=== PATIENT | female | born 1945 | race Caucasian/White ===

== ENCOUNTER 2018-10-08 13:10 | Emergency (ER) | payer MEDICARE, OTHER, SELFPAY ==
[2018-10-08 13:15] VITALS: BP 149/92; PULSE 68; RESP 15; TEMP 36.4; O2SAT 98; BMI 23.1
--- NOTE | 2018-10-08 13:17 | DI.RAD.S_ITS ---
PROCEDURE: XR CHEST 2V INDICATIONS: cough and green sputum 1 week TECHNIQUE: 2 views of the chest were acquired. COMPARISON: None. FINDINGS: Surgical changes and devices: Bilateral breast implants. Lungs and pleura: Lungs are clear. No pleural effusions or pneumothorax. Mediastinum: Mediastinal contours are normal. Heart size is normal. Bones and chest wall: No suspicious bony abnormalities. Soft tissues appear unremarkable. IMPRESSION: No acute process. Dictated by: Jamar Watt M.D. on 10/08/2018 at 13:32 Approved by: Jamar Watt M.D. on 10/08/2018 at 13:33
--- NOTE | 2018-10-08 14:51 | ED.URI ---
HPI - URI/Sore Throat <DAFNE MarianoBC - Last Filed: 10/08/18 17:20> General Chief Complaint: Upper Respiratory Symptoms Stated Complaint: cough x7 days Time Seen by Provider: 10/08/18 14:24 Source: patient Mode of arrival: ambulatory Limitations: no limitations History of Present Illness HPI Narrative: The patient is a 73-year-old never smoker female who states she has a history of bronchitis who presents with a chief complaint of a cough. Cough has been going on since Thursday 10/05. She states she also has a sore throat. She complains of feeling warm, but has not checked her temperature. She denies any vomiting. She complains of slight nausea. She says she has had some loose stools ?but not that bad.She states she recently became coughing up green stuff. She denies any chest pain or shortness of breath. She states she is taking Nasonex. She has tried ubif-akv-jrvqdla cough medication but nothing else to feel better. She present this requesting a Z-Colin for bronchitis. Related Data Home Medications Medication Instructions Recorded Confirmed MULTIVITAMIN (Multivitamin 1 cap PO EVERY DAY #0 02/22/07 -) CA PANTOTHENATE/FOLIC ACID/VIT #0 05/22/12 (MULTIVITAMIN) Dehydroepiandrosterone, Micr #0 05/22/12 (#DHEA) Fish Oil (#OMEGA 3) #0 05/22/12 Previous Rx's Medication Instructions Recorded benzonatate [Tessalon Perles] 100 mg PO BID PRN #20 cap 10/08/18 Allergies Allergy/AdvReac Type Severity Reaction Status Date / Time Penicillins Allergy Verified 10/08/18 13:15 Review of Systems <MOISES Mariano - Last Filed: 10/08/18 17:20> Review of Systems GENERAL: See HPI HEENT: See HPI RESPIRATORY: See HPI CARDIOVASCULAR: Denies chest pain, palpitations, orthopnea, edema, GASTROINTESTINAL: Denies nausea, vomiting, abdominal pain, diarrhea, constipation, melena. : Denies dysuria, frequency, incontinence, hematuria, urinary retention. MUSCULOSKELETAL: denies weakness, joint pain, or bony pain SKIN: Denies rash, skin lesions, or other NEUROLOGIC: Denies weakness, headache, numbness, change in speech, confusion, seizures, incoordination. PSYCHIATRIC: No concerning psychosocial issues. 12 point review of systems is negative except for those stated above PFSH <MOISES Mariano - Last Filed: 10/08/18 17:20> Medical History (Updated 10/08/18 @ 17:17 by MOISES Mariano) History of bronchitis (Acute) Social History (Updated 10/08/18 @ 17:16 by MOISES Mariano) Smoking Status: Never smoker Social History (Updated 10/08/18 @ 17:16 by MOISES Mariano) Smoking Status: Never smoker Exam <MOISES Mariano - Last Filed: 10/08/18 17:20> Narrative Exam Narrative: GENERAL: This is a well-nourished, well-developed patient, no acute distress HEAD: Atraumatic. Normocephalic. No temporal or scalp tenderness. EYES: Pupils equal round and reactive. Extraocular motions intact. No scleral icterus. No injection or drainage. ENT: Nose without bleeding, purulent drainage or septal hematoma. Throat without erythema, tonsillar hypertrophy or exudate. Uvula midline. Airway patent. Bilateral TMs pearly lema. NECK: Trachea midline. No JVD or lymphadenopathy. Supple, nontender, no meningeal signs. CARDIOVASCULAR: Regular rate and rhythm without murmurs, gallops, or rubs. RESPIRATORY: Clear to auscultation. Breath sounds equal bilaterally. No wheezes, rales, or rhonchi. No accessory muscle use. No stridor. No retractions. Dry cough x1 during exam GASTROINTESTINAL: Abdomen soft, non-tender, nondistended. No hepato-splenomegaly, or palpable masses. No guarding. Active bowel sounds. EXTREMITIES: No clubbing, cyanosis, or edema. No joint tenderness, effusion, or edema noted. BACK: Nontender without deformity or crepitance. No flank tenderness. NEURO: AOx3. SKIN: No rash or erythema. Initial Vital Signs Initial Vital Signs: Vital Signs Temperature 97.6 F 10/08/18 13:15 Pulse Rate 68 10/08/18 13:15 Respiratory Rate 15 10/08/18 13:15 Blood Pressure 149/92 H 10/08/18 13:15 Pulse Oximetry 98 10/08/18 13:15 <Yaneli Melton DO - Last Filed: 10/10/18 07:30> Initial Vital Signs Initial Vital Signs: Vital Signs Temperature 97.6 F 10/08/18 13:15 Pulse Rate 68 10/08/18 13:15 Respiratory Rate 15 10/08/18 13:15 Blood Pressure 149/92 H 10/08/18 13:15 Pulse Oximetry 98 10/08/18 13:15 Course <MOISES Mariano - Last Filed: 10/08/18 17:20> Orders Ordered: ED Orders 10/08/18 13:17 Chest [XR chest 2V] Stat Vital Signs - 8 hr 10/08/18 13:15 10/08/18 15:12 Temperature 97.6 F 98.3 F Pulse Rate 68 67 Respiratory Rate 15 16 Blood Pressure 149/92 H Blood Pressure [Left Arm] 134/89 Pulse Oximetry 98 99 <Yaneli Melton DO - Last Filed: 10/10/18 07:30> Orders Ordered: ED Orders 10/08/18 13:17 Chest [XR chest 2V] Stat Vital Signs - 8 hr 10/08/18 13:15 10/08/18 15:12 Temperature 97.6 F 98.3 F Pulse Rate 68 67 Respiratory Rate 15 16 Blood Pressure 149/92 H Blood Pressure [Left Arm] 134/89 Pulse Oximetry 98 99 MDM - URI/Sore Throat <MOISES Mariano - Last Filed: 10/08/18 17:20> Imaging Data Chest x-ray: Radiologist's impression: Radha Duke 73 F 1945 [place] [address] XRay Report Signed Patient: Radha Duke [facility]#: [id number] : 7Acct:[id number] Age/Sex: 73 / FDate of Service: 10/08/18 Loc: ED Accession Number: [id number] Procedure: XR chest 2V Ordering Provider: Yaneli Melton D.O. PROCEDURE: XR CHEST 2V INDICATIONS: cough and green sputum 1 week TECHNIQUE: 2 views of the chest were acquired. COMPARISON: None. FINDINGS: Surgical changes and devices: Bilateral breast implants. Lungs and pleura: Lungs are clear. No pleural effusions or pneumothorax. Mediastinum: Mediastinal contours are normal. Heart size is normal. Bones and chest wall: No suspicious bony abnormalities. Soft tissues appear unremarkable. IMPRESSION: No acute process. Dictated by: Jamar Watt M.D. on 10/08/2018 at 13:32 Approved by: Jamar Watt M.D. on 10/08/2018 at 13:33 [facility] Narrative Medical decision making narrative: The patient is a 73-year-old female who presents requesting antibiotics for her 4 day cough. She has no pneumonia acute etiology and chest x-ray. She is afebrile, oxygenating well, hemodynamically stable. I discussed at length that she has no indications of bacterial infection at this point time. Her exam is overall benign. She did have a dry cough x1 during exam and subsequent follow-up discussion. I did give her a prescription of Tessalon Perles in order to help improve her sleeping. I did encourage continued hwmr-kbq-dzzzudj medication use for comfort such as Castro med sinus rinse and honey/lemon. Discussed follow-up with her primary care provider for new or worsening symptoms. Discussed coming back to the emergency department for any acute concerns such as chest pain or shortness of breath. Of note the patient did express some concern regarding being treated by a nurse practitioner in the emergency department. I did not practitioners and physician orthodontist assistant's work in emergency department across the country, including this one. I did offer to see if the physician was available to evaluate the patient, but discussed that she was with higher acuity patients at this point time. The patient later stated that it was no longer necessary. Discharge Plan Departure Patient Disposition: Home Clinical Impression: Cough Upper respiratory infection Qualifiers: URI type: unspecified viral URI Qualified Code(s): J06.9 - Acute upper respiratory infection, unspecified Discharge Date/Time: 10/08/18 15:14 Interventions: ED Discharge Assessment Last Done: 10/08/18 15:13 Instructions: DI for Cough -- Adult, DI for Viral Upper Respiratory Infection -- Adult Activity Restrictions/Additional Instructions: Your chest x-ray shows no acute process. You have no evidence of pneumonia. You do not have a fever and are oxygenating well in the emergency department. I have given you a prescription help reduce your cough. Please combine this with zjwp-kyt-uawnwvx for measures such as honey and lemon, nute-hgx-wteizjq cold medications etc Please follow up with your primary care provider, especially if not improving or worsening. Come back to emergency department for any acute concerns such as chest pain, shortness of breath, concern of heart attack or stroke. Prescriptions: New benzonatate [Tessalon Perles] 100 mg capsule 100 mg PO BID PRN (Reason: cough) Qty: 20 RF: 0 No Action MULTIVITAMIN (Multivitamin -) 1 cap PO EVERY DAY Qty: 0 RF: 0 CA PANTOTHENATE/FOLIC ACID/VIT (MULTIVITAMIN) Qty: 0 RF: 0 Dehydroepiandrosterone, Micr (#DHEA) Qty: 0 RF: 0 Fish Oil (#OMEGA 3) Qty: 0 RF: 0 <Yaneli Melton DO - Last Filed: 10/10/18 07:30> Cosign ED Attending Cosignature Attestation: I was immediately available in the department for consultation. This documentation has been reviewed and I agree with assessment and plan. Supervised by Yaneli Melton DO
--- NOTE | 2018-10-08 14:55 | ED_ITS ---
HPI - URI/Sore Throat <DAFNE MarianoBC - Last Filed: 10/08/18 17:20> General Chief Complaint: Upper Respiratory Symptoms Stated Complaint: cough x7 days Time Seen by Provider: 10/08/18 14:24 Source: patient Mode of arrival: ambulatory Limitations: no limitations History of Present Illness HPI Narrative: The patient is a 73-year-old never smoker female who states she has a history of bronchitis who presents with a chief complaint of a cough. Cough has been going on since Thursday 10/05. She states she also has a sore throat. She complains of feeling warm, but has not checked her temperature. She denies any vomiting. She complains of slight nausea. She says she has had some loose stools ?but not that bad.She states she recently became coughing up green stuff. She denies any chest pain or shortness of breath. She states she is taking Nasonex. She has tried lles-gmi-nvlqdea cough medication but nothing else to feel better. She present this requesting a Z-Colin for bronchitis. Related Data Home Medications Medication Instructions Recorded Confirmed MULTIVITAMIN (Multivitamin 1 cap PO EVERY DAY #0 02/22/07 -) CA PANTOTHENATE/FOLIC ACID/VIT #0 05/22/12 (MULTIVITAMIN) Dehydroepiandrosterone, Micr #0 05/22/12 (#DHEA) Fish Oil (#OMEGA 3) #0 05/22/12 Previous Rx's Medication Instructions Recorded benzonatate [Tessalon Perles] 100 mg PO BID PRN #20 cap 10/08/18 Allergies Allergy/AdvReac Type Severity Reaction Status Date / Time Penicillins Allergy Verified 10/08/18 13:15 Review of Systems <MOISES Mariano - Last Filed: 10/08/18 17:20> Review of Systems GENERAL: See HPI HEENT: See HPI RESPIRATORY: See HPI CARDIOVASCULAR: Denies chest pain, palpitations, orthopnea, edema, GASTROINTESTINAL: Denies nausea, vomiting, abdominal pain, diarrhea, constipation, melena. : Denies dysuria, frequency, incontinence, hematuria, urinary retention. MUSCULOSKELETAL: denies weakness, joint pain, or bony pain SKIN: Denies rash, skin lesions, or other NEUROLOGIC: Denies weakness, headache, numbness, change in speech, confusion, seizures, incoordination. PSYCHIATRIC: No concerning psychosocial issues. 12 point review of systems is negative except for those stated above PFSH <MOISES Mariano - Last Filed: 10/08/18 17:20> Medical History (Updated 10/08/18 @ 17:17 by MOISES Mariano) History of bronchitis (Acute) Social History (Updated 10/08/18 @ 17:16 by MOISES Mariano) Smoking Status: Never smoker Social History (Updated 10/08/18 @ 17:16 by MOISES Mariano) Smoking Status: Never smoker Exam <MOISES Mariano - Last Filed: 10/08/18 17:20> Narrative Exam Narrative: GENERAL: This is a well-nourished, well-developed patient, no acute distress HEAD: Atraumatic. Normocephalic. No temporal or scalp tenderness. EYES: Pupils equal round and reactive. Extraocular motions intact. No scleral icterus. No injection or drainage. ENT: Nose without bleeding, purulent drainage or septal hematoma. Throat without erythema, tonsillar hypertrophy or exudate. Uvula midline. Airway patent. Bilateral TMs pearly lema. NECK: Trachea midline. No JVD or lymphadenopathy. Supple, nontender, no meningeal signs. CARDIOVASCULAR: Regular rate and rhythm without murmurs, gallops, or rubs. RESPIRATORY: Clear to auscultation. Breath sounds equal bilaterally. No wheezes, rales, or rhonchi. No accessory muscle use. No stridor. No retractions. Dry cough x1 during exam GASTROINTESTINAL: Abdomen soft, non-tender, nondistended. No hepato- splenomegaly, or palpable masses. No guarding. Active bowel sounds. EXTREMITIES: No clubbing, cyanosis, or edema. No joint tenderness, effusion, or edema noted. BACK: Nontender without deformity or crepitance. No flank tenderness. NEURO: AOx3. SKIN: No rash or erythema. Initial Vital Signs Initial Vital Signs: Vital Signs Temperature 97.6 F 10/08/18 13:15 Pulse Rate 68 10/08/18 13:15 Respiratory Rate 15 10/08/18 13:15 Blood Pressure 149/92 H 10/08/18 13:15 Pulse Oximetry 98 10/08/18 13:15 <Yaneli Melton DO - Last Filed: 10/10/18 07:30> Initial Vital Signs Initial Vital Signs: Vital Signs Temperature 97.6 F 10/08/18 13:15 Pulse Rate 68 10/08/18 13:15 Respiratory Rate 15 10/08/18 13:15 Blood Pressure 149/92 H 10/08/18 13:15 Pulse Oximetry 98 10/08/18 13:15 Course <MOISES Mariano - Last Filed: 10/08/18 17:20> Orders Ordered: ED Orders 10/08/18 13:17 Chest [XR chest 2V] Stat Vital Signs - 8 hr 10/08/18 13:15 10/08/18 15:12 Temperature 97.6 F 98.3 F Pulse Rate 68 67 Respiratory Rate 15 16 Blood Pressure 149/92 H Blood Pressure [Left Arm] 134/89 Pulse Oximetry 98 99 <Yaneli Melton DO - Last Filed: 10/10/18 07:30> Orders Ordered: ED Orders 10/08/18 13:17 Chest [XR chest 2V] Stat Vital Signs - 8 hr 10/08/18 13:15 10/08/18 15:12 Temperature 97.6 F 98.3 F Pulse Rate 68 67 Respiratory Rate 15 16 Blood Pressure 149/92 H Blood Pressure [Left Arm] 134/89 Pulse Oximetry 98 99 MDM - URI/Sore Throat <MOISES Mariano - Last Filed: 10/08/18 17:20> Imaging Data Chest x-ray: Radiologist's impression: Radha Duke 73 F 1945 [place] [address] XRay Report Signed Patient: Radha Duke [facility]#: [id number] : 7Acct:[id number] Age/Sex: 73 / FDate of Service: 10/08/18 Loc: ED Accession Number: [id number] Procedure: XR chest 2V Ordering Provider: Yaneli Melton D.O. PROCEDURE: XR CHEST 2V INDICATIONS: cough and green sputum 1 week TECHNIQUE: 2 views of the chest were acquired. COMPARISON: None. FINDINGS: Surgical changes and devices: Bilateral breast implants. Lungs and pleura: Lungs are clear. No pleural effusions or pneumothorax. Mediastinum: Mediastinal contours are normal. Heart size is normal. Bones and chest wall: No suspicious bony abnormalities. Soft tissues appear unremarkable. IMPRESSION: No acute process. Dictated by: Jamar Watt M.D. on 10/08/2018 at 13:32 Approved by: Jamar Watt M.D. on 10/08/2018 at 13:33 [facility] Narrative Medical decision making narrative: The patient is a 73-year-old female who presents requesting antibiotics for her 4 day cough. She has no pneumonia acute etiology and chest x-ray. She is afebrile, oxygenating well, hemodynamically stable. I discussed at length that she has no indications of bacterial infection at this point time. Her exam is overall benign. She did have a dry cough x1 during exam and subsequent follow-up discussion. I did give her a prescription of Tessalon Perles in order to help improve her sleeping. I did encourage continued pair-tfp-iilfhrn medication use for comfort such as Castro med sinus rinse and honey/lemon. Discussed follow-up with her primary care provider for new or worsening symptoms. Discussed coming back to the emergency department for any acute concerns such as chest pain or shortness of breath. Of note the patient did express some concern regarding being treated by a nurse practitioner in the emergency department. I did not practitioners and physician veterinary assistant's work in emergency department across the country, including this one. I did offer to see if the physician was available to evaluate the patient, but discussed that she was with higher acuity patients at this point time. The patient later stated that it was no longer necessary. Discharge Plan Departure Patient Disposition: Home Clinical Impression: Cough Upper respiratory infection Qualifiers: URI type: unspecified viral URI Qualified Code(s): J06.9 - Acute upper respiratory infection, unspecified Discharge Date/Time: 10/08/18 15:14 Interventions: ED Discharge Assessment Last Done: 10/08/18 15:13 Instructions: DI for Cough -- Adult, DI for Viral Upper Respiratory Infection -- Adult Activity Restrictions/Additional Instructions: Your chest x-ray shows no acute process. You have no evidence of pneumonia. You do not have a fever and are oxygenating well in the emergency department. I have given you a prescription help reduce your cough. Please combine this with euhk-jpi-euezpqa for measures such as honey and lemon, acpy-vtb-ajejxgl cold medications etc Please follow up with your primary care provider, especially if not improving or worsening. Come back to emergency department for any acute concerns such as chest pain, shortness of breath, concern of heart attack or stroke. Prescriptions: New benzonatate [Tessalon Perles] 100 mg capsule 100 mg PO BID PRN (Reason: cough) Qty: 20 RF: 0 No Action MULTIVITAMIN (Multivitamin -) 1 cap PO EVERY DAY Qty: 0 RF: 0 CA PANTOTHENATE/FOLIC ACID/VIT (MULTIVITAMIN) Qty: 0 RF: 0 Dehydroepiandrosterone, Micr (#DHEA) Qty: 0 RF: 0 Fish Oil (#OMEGA 3) Qty: 0 RF: 0 <Yaneli Melton DO - Last Filed: 10/10/18 07:30> Cosign ED Attending Cosignature Attestation: I was immediately available in the department for consultation. This documentation has been reviewed and I agree with assessment and plan. Supervised by Yaneli Melton DO
[2018-10-08 15:12] VITALS: BP 134/89; PULSE 67; RESP 16; TEMP 36.8; O2SAT 99
== END 2018-10-08 15:14 | disposition home or self-care (01) ==
PROVIDERS: Emergency Provider Nurse Practitioner Family
DX: J06.9 Acute upper respiratory infection, unspecified (principal)
CPT/HCPCS: 71046; 99282; 99283

== ENCOUNTER → 2018-10-28 09:08 | Outpatient (CLI) | payer MEDICARE, OTHER, SELFPAY ==
[2018-10-28 10:22] LABS: Alanine Aminotransferase 15 IU/L (9-52); Albumin Globulin Ratio 1.3 (1.0-2.8); Alkaline Phosphatase 79 U/L (38-126); Aspartate Aminotransferase 28 IU/L (14-36); Bilirubin Total 0.4 mg/dL (0.2-1.3); Blood Urea Nitrogen 16 mg/dL (7-17); Carbon Dioxide 30 mmol/L (22-32); Chloride 104 mmol/L (98-107); Estimated Glomerular Filt Rate > 60.0 mL/min (>60); Glucose 93 mg/dL (80-110); HEMOLYSIS < 15 (0-50); Potassium 4.2 mmol/L (3.4-5.1); Sodium 140 mmol/L (137-145)
[2018-10-28 10:37] LABS: Vitamin D 25 Hydroxy (D3) 48.4 ng/mL (30.0-100.0)
[2018-10-28 10:53] LABS: TSH w/ Reflex to FT4 2.21 uIU/mL (0.47-4.68)
[2018-10-30 14:59] LABS: Parathyroid Hormone Int 61 pg/mL (14-64)
== END ==
PROVIDERS: Visit Provider Internal Medicine Endocrinology, Diabetes & Metabolism
DX: E04.0 Nontoxic diffuse goiter (principal); M81.0 Age-related osteoporosis without current pathological fracture
CPT/HCPCS: 36415; 80053; 82306; 83970; 84443

== ENCOUNTER → 2019-01-05 14:57 | Outpatient (CLI) | payer MEDICARE, OTHER, SELFPAY ==
[2019-01-05 16:55] LABS: Progesterone, Total 1.38 ng/mL
== END ==
PROVIDERS: Physician Assistant; Visit Provider Nurse Practitioner Family
DX: N95.1 Menopausal and female climacteric states (principal); Z79.890 Hormone replacement therapy
CPT/HCPCS: 36415; 84144

== ENCOUNTER → 2019-09-30 09:18 | Outpatient (CLI) | payer MEDICARE, OTHER, SELFPAY ==
[2019-09-30 11:21] LABS: Estimated Glomerular Filt Rate > 60.0 mL/min (>60)
== END ==
DX: Z91.89 Other specified personal risk factors, not elsewhere classified (principal)
CPT/HCPCS: 36415; 82565

== ENCOUNTER → 2020-01-28 11:02 | Outpatient (CLI) | payer MEDICARE, OTHER, SELFPAY ==
[2020-01-29 18:00] LABS: COVID19 Sendout Not Detected (Not Detected)
== END ==
PROVIDERS: Visit Provider Physician Assistant
DX: R09.89 Other specified symptoms and signs involving the circulatory and respiratory systems (principal); R50.9 Fever, unspecified; R68.83 Chills (without fever)
CPT/HCPCS: 87635

== ENCOUNTER → 2020-02-02 10:36 | Outpatient (CLI) | payer MEDICARE, OTHER, SELFPAY ==
[2020-02-02 12:00] LABS: Alanine Aminotransferase 20 IU/L (<35); Albumin 3.7 g/dL (3.5-5.0); Albumin Globulin Ratio 1.4 (1.0-2.8); Alkaline Phosphatase 57 U/L (38-126); Aspartate Aminotransferase 27 IU/L (14-36); BUN Creatinine Ratio 18.1 (6-22); Bilirubin Total 0.5 mg/dL (0.2-1.3); Blood Urea Nitrogen 13 mg/dL (7-17); Calcium 9.2 mg/dL (8.4-10.2); Carbon Dioxide 33 mmol/L (22-32); Chloride 102 mmol/L (98-107); Estimated Glomerular Filt Rate > 60.0 mL/min (>60); Globulin 2.7 g/dL (1.7-4.1); Glucose 88 mg/dL (80-110); HEMOLYSIS < 15 (0-50); Potassium 4.3 mmol/L (3.4-5.1); Sodium 139 mmol/L (137-145); Total Protein 6.4 g/dL (6.3-8.2)
[2020-02-02 12:16] LABS: Vitamin D 25 Hydroxy (D3) 41.5 ng/mL (30.0-100.0)
[2020-02-02 12:28] LABS: Thyroid Stimulating Hormone 1.27 uIU/mL (0.47-4.68)
[2020-02-03 07:56] LABS: Parathyroid Hormone Int 27 pg/mL (15-65)
== END ==
PROVIDERS: PCP Internal Medicine; Referring Provider Nurse Practitioner Family; Visit Provider Internal Medicine Endocrinology, Diabetes & Metabolism
DX: M81.0 Age-related osteoporosis without current pathological fracture (principal); Z79.890 Hormone replacement therapy; N95.1 Menopausal and female climacteric states
CPT/HCPCS: 36415; 80053; 82306; 83970; 84144; 84443

== ENCOUNTER → 2021-02-09 11:11 | Outpatient (CLI) | payer MEDICARE, OTHER, SELFPAY ==
[2021-02-09 15:15] LABS: Progesterone, Total 1.25 ng/mL
== END ==
PROVIDERS: PCP Internal Medicine; Referring Provider Nurse Practitioner Family; Visit Provider Nurse Practitioner Family
DX: N95.1 Menopausal and female climacteric states (principal); Z79.899 Other long term (current) drug therapy
CPT/HCPCS: 36415; 84144

== ENCOUNTER 2021-04-28 13:28 | Emergency (ER) | payer MEDICARE, OTHER, SELFPAY ==
[2021-04-28 13:31] VITALS: BP 183/94; PULSE 60; RESP 14; TEMP 36.9; O2SAT 98; BMI 23.6
--- NOTE | 2021-04-28 13:41 | ED.ALLEREA ---
HPI - Allergic Reaction General Chief complaint: Allergic Reaction Stated complaint: allergic reaction Time Seen by Provider: 04/28/21 13:40 Source: patient Mode of arrival: Ambulatory History of Present Illness HPI narrative: The patient developed N/C rash about 45 minutes ago. She has rash on her chest, her upper extremities. She has no fever, no congestion URI symptoms. She has no cough. She denies airway tightness. She has no chest pain or dyspnea. She did have a blood draw from right antecubital earlier today. She has no discomfort at that site. She had almonds earlier today. She has not frequently, she has never had a drug or food allergy. She has no history of nut allergies. Related Data Home Medications Medication Instructions Recorded Confirmed MULTIVITAMIN (Multivitamin 1 cap PO EVERY DAY #0 02/22/07 -) CA PANTOTHENATE/FOLIC ACID/VIT #0 05/22/12 (MULTIVITAMIN) Dehydroepiandrosterone, Micr #0 05/22/12 (#DHEA) Fish Oil (#OMEGA 3) #0 05/22/12 Previous Rx's Medication Instructions Recorded benzonatate 100 mg capsule 100 mg PO BID PRN #20 cap 10/08/18 (Tessalon Perles) prednisone 20 mg tablet 40 mg PO DAILY 5 Days tab 04/28/21 Allergies Allergy/AdvReac Type Severity Reaction Status Date / Time Penicillins Allergy Verified 04/28/21 13:31 Review of Systems Constitutional Constitutional: Reports as per HPI, Denies body ache(s), Denies chills, Denies fever(s), Reports headache(s) and Reports other (Dizziness) Eyes Eyes: Denies blurry vision, Denies change in vision and Denies irritation ENT Ears, Nose, Mouth, and Throat: Denies vertigo, Reports dizziness, Reports headache(s), Denies lip swelling, Denies mouth pain, Denies nasal congestion and Denies neck pain Cardiovascular Cardiovascular: Denies chest pain, Denies diaphoresis, Denies syncope, Denies rapid heart rate and Denies dyspnea Respiratory Respiratory: Denies chest congestion, Denies cough and Denies dyspnea Gastrointestinal Gastrointestinal: Denies abdominal pain, Denies nausea and Denies vomiting Genitourinary Genitourinary: Denies dysuria Musculoskeletal Musculoskeletal: Denies arthralgias, Denies muscle weakness, Denies myalgias and Denies neck pain Integumentary/Breasts Comments: Rash was present on her upper extremities, chest and anterior neck Neurologic Neurologic: Denies vertigo, Reports dizziness, Denies syncope and Reports headache(s) Psychiatric Psychiatric: Denies anxiety Endocrine Endocrine: Reports system reviewed and no additional complaints, except as documented Hematologic/Lymphatic On Anticoagulants: No Allergic/Immunologic Allergic/Immunologic: Denies lip swelling Patient History Medical History History of bronchitis Social History Smoking Status: Never smoker Smoking Status: Never smoker alcohol intake frequency: holidays/special occasions only Substance Use Type: does not use Exam Initial Vital Signs Initial Vital Signs: Vital Signs Temperature 98.4 F 04/28/21 13:31 Pulse Rate 60 04/28/21 13:31 Respiratory Rate 14 04/28/21 13:31 Blood Pressure 183/94 H 04/28/21 13:31 Pulse Oximetry 98 04/28/21 13:31 Const General: cooperative and healthy appearing [facility] Head: normocephalic and atraumatic Face and sinus: normal facial exam Mouth: oral mucosae normal Throat: posterior oropharynx normal (No erythema or edema.) Eyes Conjunctivae: conjunctivae normal Sclera: sclerae normal Neck Neck: No lymphadenopathy and No JVD Resp Effort & Inspection: normal respiratory effort Auscultation: clear to auscultation bilaterally Cardio Rate: regular rate Rhythm: regular rhythm Heart Sounds: S1 normal, S2 normal and no murmurs Skin Other: Patchy erythematous rash to the anterior neck, chest, and proximal upper extremities. Neuro General: patient alert, patient oriented x3 and no focal motor deficits Course Course Course Narrative: Clinically she is much better after receiving Benadryl and prednisone. The rash is almost completely resolved. Lungs are clear prior to discharge. She is discharged on prednisone and Benadryl, I suggested follow-up with a PCM and seek allergy testing as this appears to be a nut allergy. 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 Prednisone 40 mg daily if symptoms returned. Avoid all nuts. There is a good chance that the almonds caused the allergic reaction. I would suggest you talk to your doctor about allergy testing. If symptoms return, you should return to the ER. Prescriptions: New prednisone 20 mg tablet 40 mg PO DAILY 5 Days 0RF No Action MULTIVITAMIN (Multivitamin -) 1 cap PO EVERY DAY Qty: 0 0RF CA PANTOTHENATE/FOLIC ACID/VIT (MULTIVITAMIN) Qty: 0 0RF Dehydroepiandrosterone, Micr (#DHEA) Qty: 0 0RF Fish Oil (#OMEGA 3) Qty: 0 0RF benzonatate [Tessalon Perles] 100 mg capsule 100 mg PO BID PRN (Reason: cough) Qty: 20 0RF Referrals: Yany Verduzco MD [Primary Care Provider] -
[2021-04-28] MEDS: diphenhydrAMINE 25 MG TABLET PO (13:44)
[2021-04-28] MEDS: predniSONE 20 MG TABLET 40 MG PO (13:44)
[2021-04-28 14:34] VITALS: BP 147/81; PULSE 62; RESP 18; O2SAT 98
== END 2021-04-28 15:10 | disposition home or self-care (01) ==
PROVIDERS: Emergency Provider Emergency Medicine; PCP Internal Medicine
DX: T78.1XXA Other adverse food reactions, not elsewhere classified, initial encounter (principal); R21 Rash and other nonspecific skin eruption; Z88.0 Allergy status to penicillin
CPT/HCPCS: 99283

== ENCOUNTER → 2021-07-17 14:36 | Outpatient (CLI) | payer MEDICARE, OTHER, SELFPAY ==
[2021-07-17 17:54] LABS: Alanine Aminotransferase 29 IU/L (<35); Albumin 3.9 g/dL (3.5-5.0); Albumin Globulin Ratio 1.3 (1.0-2.8); Alkaline Phosphatase 65 U/L (38-126); Aspartate Aminotransferase 39 IU/L (14-36); BUN Creatinine Ratio 19.7 (6-22); Bilirubin Total 0.3 mg/dL (0.2-1.3); Blood Urea Nitrogen 15 mg/dL (7-17); Carbon Dioxide 31 mmol/L (22-32); Chloride 107 mmol/L (98-107); Estimated Glomerular Filt Rate > 60.0 mL/min (>60); Globulin 2.9 g/dL (1.7-4.1); Glucose 91 mg/dL (80-110); HEMOLYSIS < 15 (0-50); Potassium 4.3 mmol/L (3.4-5.1); Sodium 139 mmol/L (137-145); Total Protein 6.8 g/dL (6.3-8.2)
[2021-07-17 18:01] LABS: Vitamin D 25 Hydroxy (D3) 49.4 ng/mL (30.0-100.0)
[2021-07-17 18:20] LABS: Thyroid Stimulating Hormone 1.76 uIU/mL (0.47-4.68)
[2021-07-18 07:13] LABS: Parathyroid Hormone Int 49 pg/mL (15-65)
== END ==
PROVIDERS: Family Provider Internal Medicine; PCP Internal Medicine; Referring Provider Internal Medicine Endocrinology, Diabetes & Metabolism; Visit Provider Internal Medicine Endocrinology, Diabetes & Metabolism
DX: E04.0 Nontoxic diffuse goiter (principal); M81.0 Age-related osteoporosis without current pathological fracture
CPT/HCPCS: 36415; 80053; 82306; 83970; 84443

== ENCOUNTER 2021-07-20 14:30 | Outpatient (RCR) | payer MEDICARE, OTHER, SELFPAY ==
--- NOTE | 2021-06-26 17:00 | PT.OIE ---
Current Diagnoses Stiffness of unspecified hip, not elsewhere classified (06/26/21) Muscle weakness (generalized) (06/26/21) Cystocele, unspecified (06/26/21) Other female genital prolapse (06/26/21) Past Medical History (Last Reviewed 04/28/21 @ 20:03 by Kwabena Lewis MD) History of bronchitis Visit Care Team Role Provider Type Other Providers Specialty: Address: Phone: Fax: Email: Yany Verduzco MD Family Provider Non-Staff Primary Care Provider Specialty: Internal Medicine Address: [address] [place] [address], [address], [address] Email: Rody Mora MD Attending Provider Non-Staff Referring Provider Specialty: WALL STEAMER Address: [address] [place] [address], [id number] Email: Physical Therapy Initial Evaluation PT-OP-A Visit Information Start: 06/23/21 17:45 Freq: Status: Active Protocol: Document 06/26/21 10:31 LRN (Rec: 06/26/21 12:31 LRN [id number]) Out-Patient Physical Therapy Visit Information Visit Information Visit Type Initial Evaluation Visit Start Time 10:31 Visit Stop Time 11:38 Total Visit Minutes 67 Visit Number 1 Evaluation Information Evaluation Date 06/26/21 Precautions Precautions Vaginal cyst, Osteopenia, increasing blood pressure, L knee replacement 06/01/2019. PT-OP-B Current Condition Start: 06/23/21 17:45 Freq: Status: Active Protocol: Document 06/26/21 10:31 LRN (Rec: 06/26/21 12:31 LRN [id number]) Current Condition History of Current Condition Onset Date 1.5 yrs ago Current Complaints Rectocele, cystocele, urethra diverticular prolapse. History of Current Condition Because of covid couldn't get in; therefore put it off. Prolapse was found by shop hand in [place] and she was referred to Dr Mora. Dr Mora did a pelvic study. Referral for vaginal prolapse. Pt states she has a vaginal cyst. Found cyst outside of vagina; therefore will have an MRI done, not yet scheduled. Referring physician wants strengthening of PF. Prior Treatments and Tests Bio-identical vaginal estrogen , also on bio-identical hormones. Future Testing and Treatments Planned MRI for cyst Treatment Goals Patient/Caregiver Goals Pt goal: improve PF strength, decrease urinary leakage with an urge when bladder is full, have a home program. Prior Functional Status Baseline Function- ADL's Independent Baseline Function- Mobility Independent Baseline Function- Recreation/Hobbies Tennis, golf, walk, gym Current Functional Impairments (Reported) Functional Limitations- ADL's Has difficulty holding urine with a strong urge or when bladder is full. Functional Limitations- Work/School Walking, pickleball Personal Factors Other Personal Factors That May Effect Vaginal cyst, Therapy/Recovery hx of 2 vaginal births Ovaries removed ~2004. L TKA 06/08/2019 PT-OP-C Subjective Start: 06/23/21 17:45 Freq: Status: Active Protocol: Document 06/26/21 10:31 LRN (Rec: 06/27/21 08:18 LRN [id number]) Patient Questionnaires Pelvic Pain and Urgency/Frequency Patient Symptom Scale Pelvic Pain Score 10 PT-OP-I Pelvic Floor Start: 06/23/21 17:45 Freq: Status: Active Protocol: Document 06/26/21 10:31 LRN (Rec: 06/26/21 12:31 LRN [id number]) Pelvic Floor Assessment Urine Urinary Symptoms Urge Sensation,Prolapse, Hesitancy,Dribbling After Urination Other Urinary Symptoms Hesistancy in the morning. Pressure in lower abdomen. Leakage Size Large Other Leakage Causes Each ovary removed 2-3 yrs apart at [place] - 2004. Voiding Frequency 12 Nocturia 1 Pads Used In 24 Hours When travelling uses a mini- pad 2-3x/day. Urine Pad Type Panty Liner Bowel Bowel Movement Frequency 2-3 [place] Stool Chart Type 1-7 4 [place] Stool Chart Comments Bowel type runs 4-5 Pelvic Clock Pelvic Clock 12-3 Tightness Pelvic Clock 3-6 Tightness Prolapse Cystocele Grade 2 Perineal Descent Resting Present Bearing Present Contraction Ability Voluntary Contraction Weak Manual Muscle Testing Left 3 Manual Muscle Testing Right 0 Manual Muscle Testing Anterior 0 Manual Muscle Testing Posterior 3 Muscle Endurance (Seconds) 3 Number of Quick Contractions In 10 10 Seconds Comments Pelvic Floor Comments Kegel: no visible anterior PF contraction, mild posterior. Use of abdominal and gluteal ms used. PT-OP-J Posture/Palpation/Skin Start: 06/23/21 17:45 Freq: Status: Active Protocol: Document 06/26/21 10:31 LRN (Rec: 06/26/21 12:31 LRN [id number]) Posture Evaluation Position Standing Head/C-Spine Posture Forward Head L-Spine Posture Increased Lordosis Shoulder Posture (R) Elevated Scapula Posture (R) Elevated Pelvis Posture Anteriorly Tilted,(L) Iliac Crest Superior,(R) Iliac Crest Inferior Knee Posture (L) Genu Varus,(R) Genu Varus Comments Posture Comments Scoliosis of spine. PT-OP-K Range of Motion Start: 06/23/21 17:45 Freq: Status: Active Protocol: Document 06/26/21 10:31 LRN (Rec: 06/26/21 12:31 LRN [id number]) Lumbar Spine Range of Motion Lumbar Spine Active Degrees Testing Position Standing Flexion 115 Extension 20 Rotation Left 25 Rotation Right 30 Lateral Flexion Left 12 Lateral Flexion Right 7 ROM Limitations Soft Tissue Tightness Hip Goniometric Range of Motion Hip Right Passive Testing Position Supine Straight Leg Raise 100 Abduction 25 Internal Rotation 25 External Rotation 45 Left Passive Testing Position Supine Straight Leg Raise 90 Abduction 20 Internal Rotation 50 External Rotation 43 PT-OP-M Strength Start: 06/23/21 17:45 Freq: Status: Active Protocol: Document 06/26/21 10:31 LRN (Rec: 06/26/21 12:31 LRN [id number]) Trunk Strength Trunk Manual Muscle Testing Rotation Left 3 Fair Rotation Right 3 Fair Core Stabilization Lacks core control with hip flex/ext muscle testing. Hip Strength Hip Manual Muscle Testing Right Flexion (L2) 5 Normal Extension (S1) 5 Normal Abduction 5 Normal Adduction 5 Normal External Rotation 4+ Good+ Internal Rotation 5 Normal Left Flexion (L2) 5 Normal Extension (S1) 5 Normal Abduction 5 Normal Adduction 5 Normal External Rotation 5 Normal Internal Rotation 5 Normal PT-OP-Q Treatments Start: 06/23/21 17:45 Freq: Status: Active Protocol: Document 06/26/21 10:31 LRN (Rec: 06/26/21 12:31 LRN [id number]) Self-Care/Home Management Treatment Education Patient Education Home Exercise Program Other Education Discussed at length results of evaluation, and goals, and plan of care (POC). Pt agreeable to goals and POC. Issued, discussed, & reviewed Bladder Diary for pt to complete over the next 7 days. Pt educated in use of Bladder Diary and I/S in tracking for 1 week. Discussed use of 2 different diaries for tracking of bladder. Activities Self-Care/Home Management Activities Issued & reviewed HEP: Vinod ex's for Quick Flicks, Long Holds strengthening. PT-OP-T Assessment and Plan Start: 06/23/21 17:45 Freq: Status: Active Protocol: Document 06/26/21 10:31 LRN (Rec: 06/26/21 12:31 LRN [id number]) Physical Therapy Assessment Rehab Potential Rehabilitation Potential Good Evaluation Complexity Number of Personal Factors/Comorbidities 3 or More Number of Body Systems Impaired 4 or More Clinical Presentation at Evaluation Evolving Impairments Impairments Activity Tolerance,ROM,Soft Tissue Mobility,Strength Goals Five Impairment Decreased PF strength (Quick Flicks: 0-1/5 R, 3/5 L, Long Hold 3 secs) Short Term Goal (STG) Pt will be able to improve R PF strength (6-12 of PF clock) to 2/3. Pt will be able to maintain a 5 sec PF contraction prior to fatigue. STG Duration 08/12/21 Correction Goal (LTG) Pt will be able to improve R PF strength (6-12 of PF clock) to 4/5. Pt will be able to maintain a 10 sec PF contraction prior to fatigue. LTG Duration 09/24/21 Four Impairment Decreased core rotational strength Impairment Trunk rotation strength is 3/5 Short Term Goal (STG) Pt will be on a core strength for rotational stability exercises. STG Duration 08/12/21 Industrial Relations Worker Goal (LTG) Pt will be able to maintain core stability with MMT of hip flex/ext. LTG Duration 09/24/21 Three Impairment Increased voiding frequency ( 12 per day) Short Term Goal (STG) Pt will be educated in proper hydration levels and normal voiding frequencies, proper vaginal and vulvar care. STG Duration 07/17/21 Correction Goal (LTG) Pt will decrease voiding frequencies to 7-9/day. LTG Duration 09/24/21 Two Impairment Urinary leakage with a full bladder and strong urge. Short Term Goal (STG) Pt will be educated in urinary delay technique and proper voiding habits. STG Duration 07/03/21 Industrial Relations Worker Goal (LTG) Decrease urinary leakage in the presence of a strong urge. LTG Duration 09/24/21 One Impairment Lacks appropriates self care HEP Impairment PROM (deg's): Hip IR: 25 R, 50 L; 45 bilaterally; AB 25 R, 20 L; PSLR 100 R, 90 L. MMT: Hip ER: 4+/5 R, 5/5 L. Short Term Goal (STG) Pt will be independent with proper isolated Kegel ex's, coordinating proper breathing. STG Duration 08/12/21 Industrial Relations Worker Goal (LTG) Pt will be independent with a self care HEP of hip and PF strengthening ex's. LTG Duration 09/24/21 Assessment Summary Assessment With pt assessed in supine, her bladder protrudes >3/4 length of the vaginal opening, but does not extend below the hymen location; therefore appears to be a grade 2 cytocele in supine. She is not able to perform an isolated Kegel, and has no palpable contraction of the Quick flicks at 6-12 of the PF clock. She is able to perform a long hold of 3-4 secs prior to weakening of her PF contraction. She does not appear to have involvement of her bowels, but has noted her bowel type to be 4 or 5, indicating possible constipation intermitently. Pt has decreased rotational hip ROM and mobility L>R, and she lacks core stability and control. The pt may take longer in her rehabilitation due to her age and possible comorbidities yet identified ( status of cyst). The pt will benefit from skilled physical therapy to work towards achieving the above stated goals. Physical Therapy Plan Frequency and Duration Frequency of Treatment 1x/Week Plan of Care Start Date 06/26/21 Plan of Care End Date 09/24/21 Therapeutic Interventions Therapeutic Interventions Home Exercise Program,Joint Mobilizations,Manual Therapy, Neuromuscular Re-education, Patient/Caregiver Education, Self-Care/Home Management,Soft Tissue Mobilization, Therapeutic Activities, Therapeutic Exercises Modalities Biofeedback,Electric Stimulation Other Therapeutic Interventions E-Stim for PF ms contraction training. Next Visit Focus/Plan Next Note Type Treatment Note Next Visit Plan Biofeedback for PF strengthening assessment. HEP: ROM (IR,ER, L PSLR, R Hip AB), HEP if needed. Review bladder diary, pt education in proper Kegel without use of substitute muscles, pt education in proper vulvar /genital care, discuss foods, and water intake. deep breathing and transfers, PF/core/hip strengthening, improve hip mobility, Assess abdominal soft tissue ( bladder) mobility,
--- NOTE | 2021-07-06 12:40 | PT.OTN ---
Current Diagnoses Stiffness of unspecified hip, not elsewhere classified (07/06/21) Muscle weakness (generalized) (07/06/21) Cystocele, unspecified (07/06/21) Other female genital prolapse (07/06/21) Physical Therapy Treatment Note PT-OP-A Visit Information Start: 06/23/21 17:45 Freq: Status: Active Protocol: Document 07/06/21 09:50 LRN (Rec: 07/06/21 10:36 LRN [id number]) Out-Patient Physical Therapy Visit Information Visit Information Visit Type Treatment Note Visit Start Time 09:50 Visit Stop Time 10:33 Total Visit Minutes 43 Visit Number 2 Evaluation Information Evaluation Date 06/26/21 Precautions Precautions Vaginal cyst (MRI scheduled for end of 08/08), Osteopenia, increasing blood pressure, L knee replacement 06/01/2019. PT-OP-B Current Condition Start: 06/23/21 17:45 Freq: Status: Active Protocol: Document 06/26/21 10:31 LRN (Rec: 06/26/21 12:31 LRN [id number]) Current Condition History of Current Condition Onset Date 1.5 yrs ago Current Complaints Rectocele, cystocele, urethra diverticular prolapse. History of Current Condition Because of covid couldn't get in; therefore put it off. Prolapse was found by servicer coin machines in [place] and she was referred to Dr Mora. Dr Mora did a pelvic study. Referral for vaginal prolapse. Pt states she has a vaginal cyst. Found cyst outside of vagina; therefore will have an MRI done, not yet scheduled. Referring physician wants strengthening of PF. Prior Treatments and Tests Bio-identical vaginal estrogen , also on bio-identical hormones. Future Testing and Treatments Planned MRI for cyst Treatment Goals Patient/Caregiver Goals Pt goal: improve PF strength, decrease urinary leakage with an urge when bladder is full, have a home program. Prior Functional Status Baseline Function- ADL's Independent Baseline Function- Mobility Independent Baseline Function- Recreation/Hobbies Tennis, golf, walk, gym Current Functional Impairments (Reported) Functional Limitations- ADL's Has difficulty holding urine with a strong urge or when bladder is full. Functional Limitations- Work/School Walking, pickleball Personal Factors Other Personal Factors That May Effect Vaginal cyst, Therapy/Recovery hx of 2 vaginal births Ovaries removed ~2004. L TKA 06/08/2019 PT-OP-C Subjective Start: 06/23/21 17:45 Freq: Status: Active Protocol: Document 07/06/21 09:50 LRN (Rec: 07/06/21 10:36 LRN [id number]) OP-PT Subjective Patient Comments Patient Comments Did bowel/bladder diary but took it. She has BM every morning and after noon ( sometimes 2 in PM), bowel types 4 & 5. Noticed she gets up to have apple cider vinegar in water (8oz), coffee with oat milk, at noon, fruit /veg powder smoothie, 1p 1/2 sandwich (meat & bread) or apple with peanut butter, 4p has 2 C Green Tea, 6p Dinner with salad, veg, meat, cocktail. Every couple hours in PM has cup of water. Urinates: AM 2/hr until 10a, then 1/hr; PM 1/hr. During the night urinates x 1 usually . PT-OP-I Pelvic Floor Start: 06/23/21 17:45 Freq: Status: Active Protocol: Document 06/26/21 10:31 LRN (Rec: 06/26/21 12:31 LRN [id number]) Pelvic Floor Assessment Urine Urinary Symptoms Urge Sensation,Prolapse, Hesitancy,Dribbling After Urination Other Urinary Symptoms Hesistancy in the morning. Pressure in lower abdomen. Leakage Size Large Other Leakage Causes Each ovary removed 2-3 yrs apart at [place] - 2002, 2004. Voiding Frequency 12 Nocturia 1 Pads Used In 24 Hours When travelling uses a mini- pad 2-3x/day. Urine Pad Type Panty Liner Bowel Bowel Movement Frequency 2-3 [place] Stool Chart Type 1-7 4 [place] Stool Chart Comments Bowel type runs 4-5 Pelvic Clock Pelvic Clock 12-3 Tightness Pelvic Clock 3-6 Tightness Prolapse Cystocele Grade 2 Perineal Descent Resting Present Bearing Present Contraction Ability Voluntary Contraction Weak Manual Muscle Testing Left 3 Manual Muscle Testing Right 0 Manual Muscle Testing Anterior 0 Manual Muscle Testing Posterior 3 Muscle Endurance (Seconds) 3 Number of Quick Contractions In 10 10 Seconds Comments Pelvic Floor Comments Kegel: no visible anterior PF contraction, mild posterior. Use of abdominal and gluteal ms used. PT-OP-J Posture/Palpation/Skin Start: 06/23/21 17:45 Freq: Status: Active Protocol: Document 06/26/21 10:31 LRN (Rec: 06/26/21 12:31 LRN [id number]) Posture Evaluation Position Standing Head/C-Spine Posture Forward Head L-Spine Posture Increased Lordosis Shoulder Posture (R) Elevated Scapula Posture (R) Elevated Pelvis Posture Anteriorly Tilted,(L) Iliac Crest Superior,(R) Iliac Crest Inferior Knee Posture (L) Genu Varus,(R) Genu Varus Comments Posture Comments Scoliosis of spine. PT-OP-K Range of Motion Start: 06/23/21 17:45 Freq: Status: Active Protocol: Document 06/26/21 10:31 LRN (Rec: 06/26/21 12:31 LRN [id number]) Lumbar Spine Range of Motion Lumbar Spine Active Degrees Testing Position Standing Flexion 115 Extension 20 Rotation Left 25 Rotation Right 30 Lateral Flexion Left 12 Lateral Flexion Right 7 ROM Limitations Soft Tissue Tightness Hip Goniometric Range of Motion Hip Right Passive Testing Position Supine Straight Leg Raise 100 Abduction 25 Internal Rotation 25 External Rotation 45 Left Passive Testing Position Supine Straight Leg Raise 90 Abduction 20 Internal Rotation 50 External Rotation 43 PT-OP-M Strength Start: 06/23/21 17:45 Freq: Status: Active Protocol: Document 06/26/21 10:31 LRN (Rec: 06/26/21 12:31 LRN [id number]) Trunk Strength Trunk Manual Muscle Testing Rotation Left 3 Fair Rotation Right 3 Fair Core Stabilization Lacks core control with hip flex/ext muscle testing. Hip Strength Hip Manual Muscle Testing Right Flexion (L2) 5 Normal Extension (S1) 5 Normal Abduction 5 Normal Adduction 5 Normal External Rotation 4+ Good+ Internal Rotation 5 Normal Left Flexion (L2) 5 Normal Extension (S1) 5 Normal Abduction 5 Normal Adduction 5 Normal External Rotation 5 Normal Internal Rotation 5 Normal PT-OP-Q Treatments Start: 06/23/21 17:45 Freq: Status: Active Protocol: Document 07/06/21 09:50 LRN (Rec: 07/06/21 10:36 LRN [id number]) Therapeutic Exercises Supine Exercises Lateral Hip stretch Supine Exercise Name Lateral Hip stretch Side bilateral Reps/Minutes 6' Hip IR stretch Supine Exercise Name Piriformis stretch Side bilateral Reps/Minutes 60 broken as needed for tolerance - 6' Comments Much adjusting and extra time needed for tolerated stretch Hip ER stretch Supine Exercise Name Fig 4 stretch Side bilateral Reps/Minutes 60 broken as needed for tolerance - 10' Comments Much adjusting and extra time needed for tolerated stretch Self-Care/Home Management Treatment Education Other Education Pt discussed plans for MRI testing of vagina for diagnosis of cyst. Discussed pt's recall of bladder diary, made recommendations of drink, foods, timing of voiding, hydration levels, bowel timing & types. Discussed Kegels: if holding more than 10 secs, it gives out, does 3x/day. Doing quick flicks 3-4 x/day of 10 4reps. Activities Self-Care/Home Management Activities Issued & reviewed HEP: Hip stretches: Fig 4, Lateral hip & Piriformis. PT-OP-T Assessment and Plan Start: 06/23/21 17:45 Freq: Status: Active Protocol: Document 07/06/21 09:50 LRN (Rec: 07/06/21 10:36 LRN [id number]) Physical Therapy Assessment Goals Five Impairment Decreased PF strength (Quick Flicks: 0-1/5 R, 3/5 L, Long Hold 3 secs) Short Term Goal (STG) Pt will be able to improve R PF strength (6-12 of PF clock) to 2/3. Pt will be able to maintain a 5 sec PF contraction prior to fatigue. STG Duration 08/12/21 Medical Claims Examiner Goal (LTG) Pt will be able to improve R PF strength (6-12 of PF clock) to 4/5. Pt will be able to maintain a 10 sec PF contraction prior to fatigue. LTG Duration 09/24/21 Four Impairment Decreased core rotational strength Impairment Trunk rotation strength is 3/5 Short Term Goal (STG) Pt will be on a core strength for rotational stability exercises. STG Duration 08/12/21 Halfway Goal (LTG) Pt will be able to maintain core stability with MMT of hip flex/ext. LTG Duration 09/24/21 Three Impairment Increased voiding frequency ( 12 per day) Short Term Goal (STG) Pt will be educated in proper hydration levels and normal voiding frequencies, proper vaginal and vulvar care. (07/06/21: Pt educated in proper hydration levels, normal voiding times) STG Duration 07/17/21 (07/06/21: Partially met) Medical Claims Examiner Goal (LTG) Pt will decrease voiding frequencies to 7-9/day. LTG Duration 09/24/21 Two Impairment Urinary leakage with a full bladder and strong urge. Short Term Goal (STG) Pt will be educated in urinary delay technique and proper voiding habits. STG Duration 07/03/21 Halfway Goal (LTG) Decrease urinary leakage in the presence of a strong urge. LTG Duration 09/24/21 One Impairment Lacks appropriates self care HEP Impairment PROM (deg's): Hip IR: 25 R, 50 L; 45 bilaterally; AB 25 R, 20 L; PSLR 100 R, 90 L. MMT: Hip ER: 4+/5 R, 5/5 L. Short Term Goal (STG) Pt will be independent with proper isolated Kegel ex's, coordinating proper breathing. STG Duration 08/12/21 Medical Claims Examiner Goal (LTG) Pt will be independent with a self care HEP of hip and PF strengthening ex's. LTG Duration 09/24/21 Assessment Summary Assessment Pt starting to recognize with increased awareness of fluid type intake affect on urinating times, frequency and voiding behaviour. Pt is very receptive to trying modifications in her fluid intake. Physical Therapy Plan Next Visit Focus/Plan Next Note Type Treatment Note Next Visit Plan Biofeedback when pt cleared of her vaginal cyst from any systemic disease, for PF strengthening assessment (end july). Review bladder diary if pt brings in; review hip IR/ER stretches and add Ilipsoas, L PSLR, R Hip AB stretches to HEP. pt education in proper vulvar/ genital care, and urinary delay technique, Educate pt in deep breathing and coordinate breaths, PF contractions with transfers, pt education in proper Kegel without use of substitute muscles, PF/core/hip strengthening, Assess abdominal soft tissue ( bladder) mobility,
--- NOTE | 2021-07-20 17:00 | PT.OTN ---
Current Diagnoses Stiffness of unspecified hip, not elsewhere classified (07/20/21) Muscle weakness (generalized) (07/20/21) Cystocele, unspecified (07/20/21) Other female genital prolapse (07/20/21) Physical Therapy Treatment Note PT-OP-A Visit Information Start: 06/23/21 17:45 Freq: Status: Active Protocol: Document 07/20/21 14:30 LRN (Rec: 07/20/21 15:12 LRN [id number]) Out-Patient Physical Therapy Visit Information Visit Information Visit Type Treatment Note Visit Start Time 14:30 Visit Stop Time 15:10 Total Visit Minutes 40 Visit Number 3 Evaluation Information Evaluation Date 06/26/21 Precautions Precautions Vaginal cyst (MRI scheduled for end of 08/08), Osteopenia, increasing blood pressure, L knee replacement 06/01/2019. PT-OP-B Current Condition Start: 06/23/21 17:45 Freq: Status: Active Protocol: Document 06/26/21 10:31 LRN (Rec: 06/26/21 12:31 LRN [id number]) Current Condition History of Current Condition Onset Date 1.5 yrs ago Current Complaints Rectocele, cystocele, urethra diverticular prolapse. History of Current Condition Because of covid couldn't get in; therefore put it off. Prolapse was found by server service assistant in [place] and she was referred to Dr Mora. Dr Mora did a pelvic study. Referral for vaginal prolapse. Pt states she has a vaginal cyst. Found cyst outside of vagina; therefore will have an MRI done, not yet scheduled. Referring physician wants strengthening of PF. Prior Treatments and Tests Bio-identical vaginal estrogen , also on bio-identical hormones. Future Testing and Treatments Planned MRI for cyst Treatment Goals Patient/Caregiver Goals Pt goal: improve PF strength, decrease urinary leakage with an urge when bladder is full, have a home program. Prior Functional Status Baseline Function- ADL's Independent Baseline Function- Mobility Independent Baseline Function- Recreation/Hobbies Tennis, golf, walk, gym Current Functional Impairments (Reported) Functional Limitations- ADL's Has difficulty holding urine with a strong urge or when bladder is full. Functional Limitations- Work/School Walking, pickleball Personal Factors Other Personal Factors That May Effect Vaginal cyst, Therapy/Recovery hx of 2 vaginal births Ovaries removed ~2004. L TKA 06/08/2019 PT-OP-C Subjective Start: 06/23/21 17:45 Freq: Status: Active Protocol: Document 07/20/21 14:30 LRN (Rec: 07/20/21 15:12 LRN [id number]) OP-PT Subjective Patient Comments Patient Comments Appt for MRI for vaginal cyst is Saturday07/31/21. Thinks things are improving and has been drinking more fluids. Not running to the bathroom as much as she is drinking more water. States she is not doing a bladder diary, but tracking it in her head. PT-OP-I Pelvic Floor Start: 06/23/21 17:45 Freq: Status: Active Protocol: Document 06/26/21 10:31 LRN (Rec: 06/26/21 12:31 LRN [id number]) Pelvic Floor Assessment Urine Urinary Symptoms Urge Sensation,Prolapse, Hesitancy,Dribbling After Urination Other Urinary Symptoms Hesistancy in the morning. Pressure in lower abdomen. Leakage Size Large Other Leakage Causes Each ovary removed 2-3 yrs apart at [place] - 2002, 2004. Voiding Frequency 12 Nocturia 1 Pads Used In 24 Hours When travelling uses a mini- pad 2-3x/day. Urine Pad Type Panty Liner Bowel Bowel Movement Frequency 2-3 Hart Stool Chart Type 1-7 4 Hart Stool Chart Comments Bowel type runs 4-5 Pelvic Clock Pelvic Clock 12-3 Tightness Pelvic Clock 3-6 Tightness Prolapse Cystocele Grade 2 Perineal Descent Resting Present Bearing Present Contraction Ability Voluntary Contraction Weak Manual Muscle Testing Left 3 Manual Muscle Testing Right 0 Manual Muscle Testing Anterior 0 Manual Muscle Testing Posterior 3 Muscle Endurance (Seconds) 3 Number of Quick Contractions In 10 10 Seconds Comments Pelvic Floor Comments Kegel: no visible anterior PF contraction, mild posterior. Use of abdominal and gluteal ms used. PT-OP-J Posture/Palpation/Skin Start: 06/23/21 17:45 Freq: Status: Active Protocol: Document 06/26/21 10:31 LRN (Rec: 06/26/21 12:31 LRN [id number]) Posture Evaluation Position Standing Head/C-Spine Posture Forward Head L-Spine Posture Increased Lordosis Shoulder Posture (R) Elevated Scapula Posture (R) Elevated Pelvis Posture Anteriorly Tilted,(L) Iliac Crest Superior,(R) Iliac Crest Inferior Knee Posture (L) Genu Varus,(R) Genu Varus Comments Posture Comments Scoliosis of spine. PT-OP-K Range of Motion Start: 06/23/21 17:45 Freq: Status: Active Protocol: Document 06/26/21 10:31 LRN (Rec: 06/26/21 12:31 LRN [id number]) Lumbar Spine Range of Motion Lumbar Spine Active Degrees Testing Position Standing Flexion 115 Extension 20 Rotation Left 25 Rotation Right 30 Lateral Flexion Left 12 Lateral Flexion Right 7 ROM Limitations Soft Tissue Tightness Hip Goniometric Range of Motion Hip Right Passive Testing Position Supine Straight Leg Raise 100 Abduction 25 Internal Rotation 25 External Rotation 45 Left Passive Testing Position Supine Straight Leg Raise 90 Abduction 20 Internal Rotation 50 External Rotation 43 PT-OP-M Strength Start: 06/23/21 17:45 Freq: Status: Active Protocol: Document 06/26/21 10:31 LRN (Rec: 06/26/21 12:31 LRN [id number]) Trunk Strength Trunk Manual Muscle Testing Rotation Left 3 Fair Rotation Right 3 Fair Core Stabilization Lacks core control with hip flex/ext muscle testing. Hip Strength Hip Manual Muscle Testing Right Flexion (L2) 5 Normal Extension (S1) 5 Normal Abduction 5 Normal Adduction 5 Normal External Rotation 4+ Good+ Internal Rotation 5 Normal Left Flexion (L2) 5 Normal Extension (S1) 5 Normal Abduction 5 Normal Adduction 5 Normal External Rotation 5 Normal Internal Rotation 5 Normal PT-OP-Q Treatments Start: 06/23/21 17:45 Freq: Status: Active Protocol: Document 07/20/21 14:30 LRN (Rec: 07/20/21 15:12 LRN [id number]) Therapeutic Exercises Supine Exercises Frog sit inner thigh stretch Supine Exercise Name Obi BKFO sit stretch Side bilateral Reps/Minutes 5' V-sit Supine Exercise Name V-sit Side bilateral Reps/Minutes 5' PSLR Supine Exercise Name PSLR Side left Reps/Minutes 60 x 2 Comments HEP issued Lateral Hip stretch Supine Exercise Name Lateral Hip stretch Side right Reps/Minutes 3' Hip IR stretch Supine Exercise Name Piriformis stretch in multiple positioning of R LE Side right Reps/Minutes 10' Comments Much adjusting and extra time needed for tolerated stretch Hip ER stretch Supine Exercise Name Fig 4 stretch - pillow on top of patella Side bilateral Reps/Minutes 10' Comments Much adjusting and extra time needed for tolerated stretch Self-Care/Home Management Treatment Education Patient Education Home Exercise Program Other Education Pt educated in urinary delay technique with handout issued. Activities Self-Care/Home Management Activities Issued & reviewed HEP: Hip flexor stretch, & Hamstring/ neural stretch. Pt I/S in hip AD stretch (V-sit & frog sit) , but pt did not want handout because she typically does the stretch anyway. PT-OP-T Assessment and Plan Start: 06/23/21 17:45 Freq: Status: Active Protocol: Document 07/20/21 14:30 LRN (Rec: 07/20/21 15:12 LRN [id number]) Physical Therapy Assessment Goals Five Impairment Decreased PF strength (Quick Flicks: 0-1/5 R, 3/5 L, Long Hold 3 secs) Short Term Goal (STG) Pt will be able to improve R PF strength (6-12 of PF clock) to 2/3. Pt will be able to maintain a 5 sec PF contraction prior to fatigue. STG Duration 08/12/21 Channeler Runner Goal (LTG) Pt will be able to improve R PF strength (6-12 of PF clock) to 4/5. Pt will be able to maintain a 10 sec PF contraction prior to fatigue. LTG Duration 09/24/21 Four Impairment Decreased core rotational strength Impairment Trunk rotation strength is 3/5 Short Term Goal (STG) Pt will be on a core strength for rotational stability exercises. STG Duration 08/12/21 Channeler Runner Goal (LTG) Pt will be able to maintain core stability with MMT of hip flex/ext. LTG Duration 09/24/21 Three Impairment Increased voiding frequency ( 12 per day) Short Term Goal (STG) Pt will be educated in proper hydration levels and normal voiding frequencies, proper vaginal and vulvar care. (07/06/21: Pt educated in proper hydration levels, normal voiding times) STG Duration 07/17/21 (07/06/21: Partially met) Channeler Runner Goal (LTG) Pt will decrease voiding frequencies to 7-9/day. LTG Duration 09/24/21 Two Impairment Urinary leakage with a full bladder and strong urge. Short Term Goal (STG) Pt will be educated in urinary delay technique and proper voiding habits. (07/20/21: Pt educated in urinary delay technique) STG Duration 07/03/21 (07/20/21: Progressed) Skilled Nursing Goal (LTG) Decrease urinary leakage in the presence of a strong urge. LTG Duration 09/24/21 One Impairment Lacks appropriates self care HEP Impairment PROM (deg's): Hip IR: 25 R, 50 L; 45 bilaterally; AB 25 R, 20 L; PSLR 100 R, 90 L. MMT: Hip ER: 4+/5 R, 5/5 L. Short Term Goal (STG) Pt will be independent with proper isolated Kegel ex's, coordinating proper breathing. STG Duration 08/12/21 Skilled Nursing Goal (LTG) Pt will be independent with a self care HEP of hip and PF strengthening ex's. LTG Duration 09/24/21 Progress Towards Goals Progress Comments Pt proression of education of self care. Assessment Summary Assessment Pt voiding less frequent with increased fluid intake. Pt bowels per subjective report is normal stool type. Physical Therapy Plan Frequency and Duration Frequency of Treatment 1x/Week Plan of Care Start Date 06/26/21 Plan of Care End Date 09/24/21 Next Visit Focus/Plan Next Note Type Treatment Note Next Visit Plan Biofeedback when pt cleared of her vaginal cyst from any systemic disease ( appt 07/31), for PF strengthening assessment (end of July). Review hip IR/ER stretches and add Ilipsoas, L PSLR, R Hip AB stretches to HEP. Assess response to urinary delay technique, Pt education in proper vulvar/ genital care, Educate pt in deep breathing and coordinate breaths, PF contractions with transfers, pt education in proper Kegel without use of substitute muscles, PF/core/hip strengthening, Assess abdominal soft tissue ( bladder) mobility,
--- NOTE | 2021-08-01 13:38 | PT-OP ANOTE ---
Canceled via [employer]
--- NOTE | 2022-03-18 13:45 | PT.OPDS ---
Current Diagnoses Stiffness of unspecified hip, not elsewhere classified (07/20/21) Muscle weakness (generalized) (07/20/21) Cystocele, unspecified (07/20/21) Other female genital prolapse (07/20/21) Visit Care Team Role Provider Type Other Providers Specialty: Address: Phone: Fax: Email: Yany Verduzco MD Family Provider Non-Staff Primary Care Provider Specialty: Internal Medicine Address: [address], [address], [place], [address] Email: Rody Mora MD Attending Provider Non-Staff Referring Provider Specialty: MACHINE MAINTENANCE MECHANIC Address: [address] [place] [address], [id number] Email: Visit Number Visit Number 3 Discharge Summary PT-OP-B Current Condition Start: 06/23/21 17:45 Freq: Status: Active Protocol: Document 06/26/21 10:31 LRN (Rec: 06/26/21 12:31 LRN [id number]) Current Condition History of Current Condition Onset Date 1.5 yrs ago Current Complaints Rectocele, cystocele, urethra diverticular prolapse. History of Current Condition Because of covid couldn't get in; therefore put it off. Prolapse was found by metal furniture repairer in [place] and she was referred to Dr Mora. Dr Mora did a pelvic study. Referral for vaginal prolapse. Pt states she has a vaginal cyst. Found cyst outside of vagina; therefore will have an MRI done, not yet scheduled. Referring physician wants strengthening of PF. Prior Treatments and Tests Bio-identical vaginal estrogen , also on bio-identical hormones. Future Testing and Treatments Planned MRI for cyst Treatment Goals Patient/Caregiver Goals Pt goal: improve PF strength, decrease urinary leakage with an urge when bladder is full, have a home program. Prior Functional Status Baseline Function- ADL's Independent Baseline Function- Mobility Independent Baseline Function- Recreation/Hobbies Tennis, golf, walk, gym Current Functional Impairments (Reported) Functional Limitations- ADL's Has difficulty holding urine with a strong urge or when bladder is full. Functional Limitations- Work/School Walking, pickleball Personal Factors Other Personal Factors That May Effect Vaginal cyst, Therapy/Recovery hx of 2 vaginal births Ovaries removed ~2004. L TKA 06/08/2019 PT-OP-C Subjective Start: 06/23/21 17:45 Freq: Status: Active Protocol: Document 07/20/21 14:30 LRN (Rec: 07/20/21 15:12 LRN [id number]) OP-PT Subjective Patient Comments Patient Comments Appt for MRI for vaginal cyst is Saturday07/31/21. Thinks things are improving and has been drinking more fluids. Not running to the bathroom as much as she is drinking more water. States she is not doing a bladder diary, but tracking it in her head. PT-OP-I Pelvic Floor Start: 06/23/21 17:45 Freq: Status: Active Protocol: Document 06/26/21 10:31 LRN (Rec: 06/26/21 12:31 LRN [id number]) Pelvic Floor Assessment Urine Urinary Symptoms Urge Sensation,Prolapse, Hesitancy,Dribbling After Urination Other Urinary Symptoms Hesistancy in the morning. Pressure in lower abdomen. Leakage Size Large Other Leakage Causes Each ovary removed 2-3 yrs apart at [place] - 2004. Voiding Frequency 12 Nocturia 1 Pads Used In 24 Hours When travelling uses a mini- pad 2-3x/day. Urine Pad Type Panty Liner Bowel Bowel Movement Frequency 2-3 Bremer Stool Chart Type 1-7 4 Bremer Stool Chart Comments Bowel type runs 4-5 Pelvic Clock Pelvic Clock 12-3 Tightness Pelvic Clock 3-6 Tightness Prolapse Cystocele Grade 2 Perineal Descent Resting Present Bearing Present Contraction Ability Voluntary Contraction Weak Manual Muscle Testing Left 3 Manual Muscle Testing Right 0 Manual Muscle Testing Anterior 0 Manual Muscle Testing Posterior 3 Muscle Endurance (Seconds) 3 Number of Quick Contractions In 10 10 Seconds Comments Pelvic Floor Comments Kegel: no visible anterior PF contraction, mild posterior. Use of abdominal and gluteal ms used. PT-OP-J Posture/Palpation/Skin Start: 06/23/21 17:45 Freq: Status: Active Protocol: Document 06/26/21 10:31 LRN (Rec: 06/26/21 12:31 LRN [id number]) Posture Evaluation Position Standing Head/C-Spine Posture Forward Head L-Spine Posture Increased Lordosis Shoulder Posture (R) Elevated Scapula Posture (R) Elevated Pelvis Posture Anteriorly Tilted,(L) Iliac Crest Superior,(R) Iliac Crest Inferior Knee Posture (L) Genu Varus,(R) Genu Varus Comments Posture Comments Scoliosis of spine. PT-OP-K Range of Motion Start: 06/23/21 17:45 Freq: Status: Active Protocol: Document 06/26/21 10:31 LRN (Rec: 06/26/21 12:31 LRN [id number]) Lumbar Spine Range of Motion Lumbar Spine Active Degrees Testing Position Standing Flexion 115 Extension 20 Rotation Left 25 Rotation Right 30 Lateral Flexion Left 12 Lateral Flexion Right 7 ROM Limitations Soft Tissue Tightness Hip Goniometric Range of Motion Hip Right Passive Testing Position Supine Straight Leg Raise 100 Abduction 25 Internal Rotation 25 External Rotation 45 Left Passive Testing Position Supine Straight Leg Raise 90 Abduction 20 Internal Rotation 50 External Rotation 43 PT-OP-M Strength Start: 06/23/21 17:45 Freq: Status: Active Protocol: Document 06/26/21 10:31 LRN (Rec: 06/26/21 12:31 LRN [id number]) Trunk Strength Trunk Manual Muscle Testing Rotation Left 3 Fair Rotation Right 3 Fair Core Stabilization Lacks core control with hip flex/ext muscle testing. Hip Strength Hip Manual Muscle Testing Right Flexion (L2) 5 Normal Extension (S1) 5 Normal Abduction 5 Normal Adduction 5 Normal External Rotation 4+ Good+ Internal Rotation 5 Normal Left Flexion (L2) 5 Normal Extension (S1) 5 Normal Abduction 5 Normal Adduction 5 Normal External Rotation 5 Normal Internal Rotation 5 Normal PT-OP-T Assessment and Plan Start: 06/23/21 17:45 Freq: Status: Active Protocol: Document 03/18/22 13:36 LRN (Rec: 03/18/22 13:45 LRN [id number]) Physical Therapy Assessment Goals Five Impairment Decreased PF strength (Quick Flicks: 0-1/5 R, 3/5 L, Long Hold 3 secs) Short Term Goal (STG) Pt will be able to improve R PF strength (6-12 of PF clock) to 2/3. Pt will be able to maintain a 5 sec PF contraction prior to fatigue. STG Duration 08/12/21 (03/18/22: NOT MET GOAL, pt unavailable for final assessment) Fpc Goal (LTG) Pt will be able to improve R PF strength (6-12 of PF clock) to 4/5. Pt will be able to maintain a 10 sec PF contraction prior to fatigue. LTG Duration 09/24/21 (03/18/22: NOT MET GOAL, pt unavailable for final assessment) Four Impairment Decreased core rotational strength Impairment Trunk rotation strength is 3/5 Short Term Goal (STG) Pt will be on a core strength for rotational stability exercises. STG Duration 08/12/21 (03/18/22: NOT MET GOAL, pt unavailable for final assessment) Fpc Goal (LTG) Pt will be able to maintain core stability with MMT of hip flex/ext. LTG Duration 09/24/21 (03/18/22: NOT MET GOAL, pt unavailable for final assessment) Three Impairment Increased voiding frequency ( 12 per day) Short Term Goal (STG) Pt will be educated in proper hydration levels and normal voiding frequencies, proper vaginal and vulvar care. (07/06/21: Pt educated in proper hydration levels, normal voiding times) STG Duration 07/17/21 (03/18/22: Partially met goal, pt unavailable for final assessment) Fpc Goal (LTG) Pt will decrease voiding frequencies to 7-9/day. LTG Duration 09/24/21 (03/18/22: NOT MET GOAL, pt unavailable for final assessment) Two Impairment Urinary leakage with a full bladder and strong urge. Short Term Goal (STG) Pt will be educated in urinary delay technique and proper voiding habits. (07/20/21: Pt educated in urinary delay technique) STG Duration 07/03/21 (03/18/22: Progressed, pt unavailable for final assessment)) Manager Product Support Goal (LTG) Decrease urinary leakage in the presence of a strong urge. LTG Duration 09/24/21 (03/18/22: NOT MET GOAL, pt unavailable for final assessment) One Impairment Lacks appropriates self care HEP Impairment PROM (deg's): Hip IR: 25 R, 50 L; 45 bilaterally; AB 25 R, 20 L; PSLR 100 R, 90 L. MMT: Hip ER: 4+/5 R, 5/5 L. Short Term Goal (STG) Pt will be independent with proper isolated Kegel ex's, coordinating proper breathing. STG Duration 08/12/21 (03/18/22: NOT MET GOAL, pt unavailable for final assessment) Fpc Goal (LTG) Pt will be independent with a self care HEP of hip and PF strengthening ex's. LTG Duration 09/24/21 (03/18/22: NOT MET GOAL, pt unavailable for final assessment) Assessment Summary Assessment The pt was last seen on 07/20/21 . At that time the pt was voiding less frequently with increased fluid intake. Per report her bowels were of normal stool type. She had attended therapy twice; therefore goals were not met and pt was unavailable for final assessment. Pt is being discharged from therapy due to lack of attendance. Physical Therapy Plan Discharge Physical Therapy Discharge Reasons No Longer Attending PT Discharge Comments Thank you for your referral.
== END 2022-03-20 10:47 | disposition home or self-care (01) ==
LOC: PHYS 14:30
PROVIDERS: Family Provider Internal Medicine; PCP Internal Medicine; Referring Provider Obstetrics & Gynecology Female Pelvic Medicine and Reconstructive Surgery; Visit Provider Obstetrics & Gynecology Female Pelvic Medicine and Reconstructive Surgery
DX: N81.89 Other female genital prolapse (principal); N81.10 Cystocele, unspecified; M25.659 Stiffness of unspecified hip, not elsewhere classified; M62.81 Muscle weakness (generalized)
CPT/HCPCS: 97110; 97162; 97535

== ENCOUNTER → 2022-07-19 10:27 | Outpatient (CLI) | payer MEDICARE, OTHER, SELFPAY ==
[2022-07-19 14:07] LABS: Alanine Aminotransferase 21 IU/L (<35); Albumin 3.8 g/dL (3.5-5.0); Albumin Globulin Ratio 1.2 (1.0-2.8); Alkaline Phosphatase 88 U/L (38-126); Aspartate Aminotransferase 28 IU/L (14-36); BUN Creatinine Ratio 17.9 (6-22); Bilirubin Total 0.2 mg/dL (0.2-1.3); Blood Urea Nitrogen 12 mg/dL (7-17); Carbon Dioxide 31 mmol/L (22-32); Chloride 103 mmol/L (98-107); Estimated Glomerular Filt Rate > 60 mL/min (>60); Globulin 3.1 g/dL (1.7-4.1); Glucose 96 mg/dL (80-110); HEMOLYSIS < 15 (0-50); Potassium 4.3 mmol/L (3.4-5.1); Sodium 139 mmol/L (137-145); Total Protein 6.9 g/dL (6.3-8.2)
[2022-07-19 14:26] LABS: Vitamin D 25 Hydroxy (D3) 55.9 ng/mL (30.0-100.0)
[2022-07-19 14:38] LABS: Thyroid Stimulating Hormone 1.46 uIU/mL (0.47-4.68)
[2022-07-21 10:22] LABS: Parathyroid Hormone Int 34 pg/mL (15-65)
== END ==
PROVIDERS: Family Provider Internal Medicine; PCP Internal Medicine; Referring Provider Internal Medicine Endocrinology, Diabetes & Metabolism; Visit Provider Internal Medicine Endocrinology, Diabetes & Metabolism
DX: E04.0 Nontoxic diffuse goiter (principal); M81.0 Age-related osteoporosis without current pathological fracture
CPT/HCPCS: 36415; 80053; 82306; 83970; 84443

== ENCOUNTER → 2023-01-18 14:41 | Outpatient (CLI) | payer MEDICARE, OTHER, SELFPAY ==
[2023-01-18 16:06] LABS: Calcium 8.8 mg/dL (8.4-10.2); Estimated Glomerular Filt Rate > 60 mL/min (>60); Magnesium 2.3 mg/dL (1.6-2.3); Phosphorous 3.4 mg/dL (2.8-4.1)
== END ==
PROVIDERS: Family Provider Internal Medicine; PCP Internal Medicine; Referring Provider Internal Medicine; Visit Provider Internal Medicine
DX: Z79.899 Other long term (current) drug therapy (principal)
CPT/HCPCS: 36415; 82310; 82565; 83735; 84100

== ENCOUNTER → 2023-03-21 13:37 | Outpatient (CLI) | payer MEDICARE, OTHER, SELFPAY ==
[2023-03-21 14:22] LABS: Calcium 9.1 mg/dL (8.4-10.2); Estimated Glomerular Filt Rate > 60 mL/min (>60); Magnesium 2.1 mg/dL (1.6-2.3); Phosphorous 3.6 mg/dL (2.8-4.1)
== END ==
PROVIDERS: Family Provider Internal Medicine; PCP Internal Medicine; Referring Provider Internal Medicine; Visit Provider Internal Medicine
DX: Z79.899 Other long term (current) drug therapy (principal)
CPT/HCPCS: 36415; 82310; 82565; 83735; 84100

== ENCOUNTER → 2023-08-05 14:41 | Outpatient (CLI) | payer MEDICARE, OTHER, SELFPAY ==
[2023-08-05 15:30] LABS: Albumin 3.7 g/dL (3.5-5.0); BUN Creatinine Ratio 20.3 (6-22); Blood Urea Nitrogen 13 mg/dL (7-17); Calcium 9.2 mg/dL (8.4-10.2); Carbon Dioxide 34 mmol/L (22-32); Chloride 103 mmol/L (98-107); Estimated Glomerular Filt Rate > 60 mL/min (>60); Glucose 99 mg/dL (80-110); HEMOLYSIS < 15 (0-50); Phosphorous 4.5 mg/dL (2.8-4.1); Potassium 3.9 mmol/L (3.4-5.1); Sodium 138 mmol/L (137-145)
[2023-08-05 16:03] LABS: Vitamin D 25 Hydroxy (D3) 49.1 ng/mL (30.0-100.0)
== END ==
PROVIDERS: Family Provider Internal Medicine; PCP Internal Medicine; Referring Provider Internal Medicine; Visit Provider Internal Medicine
DX: M81.0 Age-related osteoporosis without current pathological fracture (principal)
CPT/HCPCS: 36415; 80069; 82306

== ENCOUNTER → 2023-10-24 09:58 | Outpatient (CLI) | payer MEDICARE, OTHER, SELFPAY ==
[2023-10-24 11:07] LABS: Alanine Aminotransferase 21 IU/L (<35); Albumin Globulin Ratio 1.5 (1.0-2.8); Alkaline Phosphatase 67 U/L (38-126); Aspartate Aminotransferase 30 IU/L (14-36); BUN Creatinine Ratio 24.7 (6-22); Bilirubin Total 0.6 mg/dL (0.2-1.3); Blood Urea Nitrogen 18 mg/dL (7-17); Calcium 8.6 mg/dL (8.4-10.2); Carbon Dioxide 28 mmol/L (22-32); Chloride 109 mmol/L (98-107); Estimated Glomerular Filt Rate > 60 mL/min (>60); Globulin 2.7 g/dL (1.7-4.1); Glucose 95 mg/dL (80-110); HEMOLYSIS < 15 (0-50); Sodium 139 mmol/L (137-145); Total Protein 6.7 g/dL (6.3-8.2)
[2023-10-24 11:37] LABS: Thyroid Stimulating Hormone 1.53 uIU/mL (0.47-4.68)
[2023-10-24 15:49] LABS: Vitamin D 25 Hydroxy (D3) 50.7 ng/mL (30.0-100.0)
[2023-10-25 08:09] LABS: Parathyroid Hormone Int 44 pg/mL (15-65)
== END ==
PROVIDERS: Family Provider Internal Medicine; PCP Internal Medicine; Referring Provider Internal Medicine Endocrinology, Diabetes & Metabolism; Visit Provider Internal Medicine Endocrinology, Diabetes & Metabolism
DX: E04.0 Nontoxic diffuse goiter (principal); M81.0 Age-related osteoporosis without current pathological fracture
CPT/HCPCS: 36415; 80053; 82306; 83970; 84443

== ENCOUNTER → 2024-07-20 08:42 | Outpatient (CLI) | payer MEDICARE, OTHER, SELFPAY ==
--- NOTE | 2024-07-20 09:32 | DI.MRI.S_ITS ---
PROCEDURE: MR KNEE RT WO CON INDICATIONS: unilateral primary osteroarthritis TECHNIQUE: Noncontrast sagittal PD fast spin echo and T2 fast spin echo with fat saturation, sagittal 3-D FLASH with fat saturation; coronal T1 spin echo and PD fast spin echo with fat saturation, and axial PD fast spin echo with fat saturation through the knee. COMPARISON: None. FINDINGS: Image quality: Excellent. Bones: Marrow edema is present at the anterior-central femoral condyle (9/16), related to a small subchondral insufficiency fracture. Marrow edema is also present at the anterior-medial tibial plateau (11/20), related to the articular cartilage defects and osteoarthritis. There is no other acute fracture or dislocation. Joints: There is a moderate knee joint effusion with synovial proliferation. There is moderate-severe knee osteoarthritis, most conspicuous in the medial compartment. Burnett's cyst: Trace Burnett's cyst. Menisci: There is a complex tear of the body and posterior horn of the medial meniscus with bucket-handle tear fragments are displaced superior to the posterior horn and along the inner free edge at the meniscal body (). The lateral meniscus is intact. The posterior root attachments are intact. Cruciate ligaments: The anterior cruciate ligament is normal. The posterior cruciate ligament is normal. Collateral ligaments: The medial collateral ligament complex is normal. The lateral collateral ligament complex is normal. Popliteus Muscle/Tendon: The popliteus muscle and tendon are normal. Extensor mechanism: The quadriceps tendon is normal. The patellar tendon is normal. The medial and lateral patellar retinacular attachments are normal. Articular cartilage: There is full-thickness cartilage loss throughout the medial compartment ( Other: No other acute findings. IMPRESSION: 1. Complex tear of the medial meniscus with bucket-handle tear fragments and associated severe medial compartment knee osteoarthritis. 2. Acute-subacute subchondral insufficiency fracture at the anterior-central femoral condyle. Dictated by: Stewart Dawn M.D. on 07/20/2024 at 13:56 Approved by: Stewart Dawn M.D. on 07/20/2024 at 14:26
== END ==
LOC: MRI 08:43
PROVIDERS: Family Provider Internal Medicine; PCP Internal Medicine; Referring Provider Orthopaedic Surgery Adult Reconstructive Orthopaedic Surgery; Visit Provider Orthopaedic Surgery Adult Reconstructive Orthopaedic Surgery
DX: S83.231A Complex tear of medial meniscus, current injury, right knee, initial encounter (principal); S83.211A Bucket-handle tear of medial meniscus, current injury, right knee, initial encounter; M17.11 Unilateral primary osteoarthritis, right knee; M84.451A Pathological fracture, right femur, initial encounter for fracture
CPT/HCPCS: 73721

== ENCOUNTER → 2024-07-28 11:16 | Outpatient (CLI) | payer MEDICARE, OTHER, SELFPAY ==
[2024-07-28 12:29] LABS: Albumin 4.1 g/dL (3.5-5.0); BUN Creatinine Ratio 21.3 (6-22); Blood Urea Nitrogen 16 mg/dL (7-17); Calcium 8.9 mg/dL (8.4-10.2); Carbon Dioxide 27 mmol/L (22-32); Chloride 106 mmol/L (98-107); Estimated Glomerular Filt Rate > 60 mL/min (>60); Glucose 89 mg/dL (80-110); HEMOLYSIS < 15 (0-50); Phosphorous 3.1 mg/dL (2.8-4.1); Potassium 4.6 mmol/L (3.4-5.1); Sodium 140 mmol/L (137-145)
[2024-07-28 15:28] LABS: Vitamin D 25 Hydroxy (D3) 41.9 ng/mL (30.0-100.0)
== END ==
LOC: LAB 11:18
PROVIDERS: Family Provider Internal Medicine; PCP Internal Medicine; Referring Provider Internal Medicine; Visit Provider Internal Medicine
DX: M81.0 Age-related osteoporosis without current pathological fracture (principal)
CPT/HCPCS: 36415; 80069; 82306

== ENCOUNTER 2024-11-30 16:50 | Emergency (ER) | payer MEDICARE, OTHER, SELFPAY ==
[2024-11-30] VITALS (7 sets, daily range): BP systolic 168–202; BP diastolic 92–108; PULSE 64–72; RESP 14–21; TEMP 36.8; O2SAT 97–99; BMI 23.5
--- NOTE | 2024-11-30 17:30 | EKG_ITS ---
[place] [id number] [place] [id number] Test Date: 2024-11-30 Pat Name: Radha Duke Department: [facility] Room: Gender: Female Marine Specialist: ITZ NINA : 1945 Requested By: Order Number: [id number] Reading MD: Yaron Verma Measurements Intervals [place] Rate: 81 P: 37 [place]: 160 QRS: 123 QRSD: 86 T: 41 QT: 386 QTc: 448 Interpretive Statements Sinus rhythm with premature atrial complexes with aberrant conduction Right axis deviation Low voltage QRS Electronically Signed On 12-02-2024 13:50:44 PDT by Yaron Verma
[2024-11-30 17:47] LABS: Add Manual Diff / Slide Review NO; Hematocrit 37.1 % (36-46); Hemoglobin 12.4 g/dL (12.0-16.0); Lymphocytes Absolute Auto 2000 /uL (1100-4500); Mean Corpuscular HGB Conc 33.4 % (30-36); Mean Corpuscular Hemoglobin 28.0 PG (26-34); Mean Corpuscular Volume 83.9 fL (80-100); Platelet Count 256 X10^3/uL (150-400)
[2024-11-30 17:55] LABS: INR 1.0 (0.9-1.3); Prothrombin Time 11.4 SECONDS (9.4-12.5)
[2024-11-30 17:58] LABS: PTT Partial Thromboplastin Tim 29 SECONDS (25.1-36.5)
[2024-11-30 17:59] LABS: Alanine Aminotransferase 22 IU/L (<35); Albumin 4.0 g/dL (3.5-5.0); Albumin Globulin Ratio 1.3 (1.0-2.8); Alkaline Phosphatase 82 U/L (38-126); Blood Urea Nitrogen 22 mg/dL (7-17); Calcium 8.8 mg/dL (8.4-10.2); Carbon Dioxide 27 mmol/L (22-32); Chloride 108 mmol/L (98-107); Creatine Kinase 66 U/L (30-135); Estimated Glomerular Filt Rate > 60 mL/min (>60); Globulin 3.1 g/dL (1.7-4.1); Glucose 103 mg/dL (70-99); HEMOLYSIS < 15 (0-50); Magnesium 2.2 mg/dL (1.6-2.3); Potassium 4.2 mmol/L (3.4-5.1); Sodium 139 mmol/L (137-145); Total Protein 7.1 g/dL (6.3-8.2)
[2024-11-30 18:11] LABS: NT-proBNP (BNP-Adult 18+) 473 pg/mL (<450); Troponin I < 0.012 ng/mL (0.01-0.034)
--- NOTE | 2024-11-30 22:48 | DI.CT.S_ITS ---
PROCEDURE: CT ANGIO CHEST PE PROTOCOL INDICATIONS: chest tightness with positive d-dimer TECHNIQUE: After the administration of intravenous contrast, 2 mm thick sections acquired from the pulmonary apices to the posterior costophrenic angles. 3-dimensional maximum intensity projection (MIP) coronal and sagittal reformats were then acquired through the thorax. For radiation dose reduction, the following was used: automated exposure control, adjustment of mA and/or kV according to patient size. COMPARISON: [facility], CT, CT CHEST WITHOUT CONTRAST, 03/10/2024, 13:19. FINDINGS: Image quality: Diagnostic. Pulmonary arteries: Pulmonary arteries are normal in size, and demonstrate no intraluminal filling defects to suggest central pulmonary embolism. Lower Neck: No enlarged lymph nodes. Thyroid: No thyroid nodules which require sonographic follow up, per consensus guidelines. Axillae: No enlarged lymph nodes. Chest Wall: Bilateral breast implants Bones: Unremarkable. Lungs and Pleura: No pneumothorax or pleural effusions. Unchanged right middle lobe nodule. Heart: Heart size is normal. No pericardial effusion. Thoracic Vessels: Ascending thoracic aorta measures 3.7 cm. Mediastinum and Steffanie: No enlarged lymph nodes. Esophagus: No wall thickening. No hiatal hernia. Upper Abdomen: Right renal cyst. IMPRESSION: No pulmonary embolus. No acute cardiopulmonary process. Dictated by: Katelyn Jaimes M.D. on 11/30/2024 at 23:42 Approved by: Katelyn Jaimes M.D. on 11/30/2024 at 23:44
--- NOTE | 2024-11-30 22:50 | PC.NURSE ---
Patient reports on Saturday it felt like an elephant on my chest and it just feels hard to breath. Patient recently had surgery on 11/18/24. Provider Avni made aware of patient presentation and d-dimer and new orders placed as per JUL.
--- NOTE | 2024-11-30 22:53 | ED_ITS ---
HPI - Chest Pain General Chief Complaint: Chest Pain Stated Complaint: chest tightness 1 week post op Time Seen by Provider: 11/30/24 18:49 Source: patient Mode of arrival: Ambulatory History of Present Illness HPI narrative: 79-year-old female history of dyslipidemia recently had reconstructive breast surgery on November 23 with removal of implants and new ones placed tense with new onset chest pressure and tightness radiating to the back along with shortness of breath for the past few days. She has not done anything for it and denies any leg pain or swelling, cough, fever, chills, nausea, vomiting, or diaphoresis. Other than what is stated 14 point review of systems negative Related Data Home Medications ?Medication ?Instructions ?Recorded ?Confirmed MULTIVITAMIN (Multivitamin 1 cap PO EVERY DAY ##0 10/24 -) CA PANTOTHENATE/FOLIC ACID/VIT ##0 05/22/12 (MULTIVITAMIN) Dehydroepiandrosterone, Micr ##0 05/22/12 (#DHEA) Fish Oil (#OMEGA 3) ##0 05/22/12 Previous Rx's ?Medication ?Instructions ?Recorded benzonatate 100 mg capsule 100 mg PO BID PRN cough #20 caps 10/08/18 (Tessalon Perles) Allergies Allergy/AdvReac Type Severity Reaction Status Date / Time rofecoxib (From Vioxx) AdvReac Nausea Verified 11/30/24 17:17 Review of Systems Review of Systems ROS Unobtainable: All systems reviewed & are unremarkable except as noted in HPI and below Patient History Medical History History of bronchitis Social History Smoking Status: Never smoker Smoking Status: Never smoker alcohol intake frequency: holidays/special occasions only Exam Narrative Exam Narrative: GENERAL: [79] year old patient appears stated age. Well-developed patient, in mild distress. HEAD: Atraumatic. Normocephalic. EYES: Pupils equal round and reactive. Extraocular motions intact. No scleral icterus. No injection or drainage. ENT: Nose without bleeding, purulent drainage. Throat without erythema, tonsillar hypertrophy or exudate. Airway patent. NECK: Trachea midline. Non tender CARDIOVASCULAR: Regular rate and rhythm without murmurs, gallops, or rubs. RESPIRATORY: Clear to auscultation. Breath sounds equal bilaterally. No wheezes, rales, or rhonchi. GASTROINTESTINAL: Abdomen soft, non-tender, nondistended. EXTREMITIES: No edema or joint tenderness. BACK: Nontender without deformity or crepitance. No flank tenderness. NEURO: AOx3. SKIN: No rash or erythema of visible areas Initial Vital Signs Initial Vital Signs: Vital Signs Temperature 98.2 F 11/30/24 17:17 Pulse Rate 64 11/30/24 17:17 Respiratory Rate 16 11/30/24 17:17 Blood Pressure 168/92 H 11/30/24 17:17 Pulse Oximetry 97 11/30/24 17:17 Oxygen Delivery Method Room Air 11/30/24 17:17 Scores HEART Score Heart Score history: Slightly Suspicious Heart Score EKG: Normal Heart Score Age: > or = 65 years old Heart Score risk factors: 1-2 risk factors Heart Score troponin: < or = to normal limit Heart Score Total: 3 Course Orders Ordered: ED Orders 11/30/24 17:23 EKG-12 Lead Stat 11/30/24 17:36 Complete Blood Count AUTO DIFF Stat Comprehensive Metabolic Panel Stat D Dimer Stat Magnesium Stat NT-proBNP (BNP-Adult 18+) Stat PTT Partial Thromboplastin Gomez Stat Prothrombin Time INR Stat Troponin & CK Cardiac Panel Stat 11/30/24 22:48 CT angio chest PE protocol Stat Vital Signs Vital signs: Vital Signs - 8 hr 11/30/24 17:17 11/30/24 22:24 11/30/24 22:30 Temperature 98.2 F Pulse Rate 64 69 Respiratory Rate 16 Blood Pressure 168/92 H 194/99 H Pulse Oximetry 97 99 Oxygen Delivery Method Room Air 11/30/24 22:30 11/30/24 22:37 11/30/24 22:37 Temperature Pulse Rate 71 71 Respiratory Rate 21 Blood Pressure 202/99 H Pulse Oximetry 98 98 Oxygen Delivery Method 11/30/24 22:43 11/30/24 22:43 11/30/24 23:00 Temperature Pulse Rate 72 Respiratory Rate 18 Blood Pressure 187/108 H 196/98 H Pulse Oximetry 98 Oxygen Delivery Method 11/30/24 23:00 Temperature Pulse Rate 71 Respiratory Rate 18 Blood Pressure Pulse Oximetry 98 Oxygen Delivery Method Room Air MDM - Chest Pain Lab Data 11/30/24 17:36 11/30/24 17:36 Labs: Lab Results 11/30/24 Range/Units 17:36 WBC 8.5 (4.5-11.0) X10^3/uL RBC 4.42 (4.0-5.2) X10^6/uL Hgb 12.4 (12.0-16.0) g/dL Hct 37.1 (36-46) % MCV 83.9 (80-100) fL MCH 28.0 (26-34) PG MCHC 33.4 (30-36) % RDW 15.5 H (11.6-14.8) % Plt Count 256 (150-400) X10^3/uL Neut % (Auto) 66.0 (50-75) % Lymph % (Auto) 23.2 L (25-40) % Morrison % (Auto) 7.3 (3-14) % Eos % (Auto) 2.6 (2-4) % Baso % (Auto) 0.9 (0-2) % Neut # (Auto) 5600 (7009-3375) /uL Lymph # (Auto) 2000 (6922-4252) /uL Morrison # (Auto) 600 (0-900) /uL Eos # (Auto) 200 (0-450) /uL Baso # (Auto) 100 (0-100) /uL PT 11.4 (9.4-12.5) SECONDS INR 1.0 (0.9-1.3) APTT 29 (25.1-36.5) SECONDS D-Dimer 1208 H (<500) ng/ml Sodium 139 (137-145) mmol/L Potassium 4.2 (3.4-5.1) mmol/L Chloride 108 H (98-107) mmol/L Carbon Dioxide 27 (22-32) mmol/L BUN 22 H (7-17) mg/dL Creatinine 0.65 (0.52-1.04) mg/dL Estimated GFR > 60 (>60) mL/min BUN/Creatinine Ratio 33.8 H (6-22) Glucose 103 H (70-99) mg/dL Calcium 8.8 (8.4-10.2) mg/dL Magnesium 2.2 (1.6-2.3) mg/dL Total Bilirubin 0.3 (0.2-1.3) mg/dL AST 36 (14-36) IU/L ALT 22 (<35) IU/L Alkaline Phosphatase 82 (38-126) U/L Total Creatine Kinase 66 (30-135) U/L Troponin I < 0.012 (0.01-0.034) ng/mL NT-Pro-B Natriuret Pep 473 H (<450) pg/mL Total Protein 7.1 (6.3-8.2) g/dL Albumin 4.0 (3.5-5.0) g/dL Globulin 3.1 (1.7-4.1) g/dL Albumin/Globulin Ratio 1.3 (1.0-2.8) Imaging Data CT scan - chest: Radiologist's Impression: [address] [address] [address] Scan Report Signed Patient: Radha Duke MR#: [id number] : 1945 Acct:[id number] Age/Sex: 79 / F Date of Service: 11/30/24 Loc: ED Accession Number: [id number] Procedure: CT angio chest PE protocol Ordering Provider: Terrell Holly D.O. PROCEDURE: CT ANGIO CHEST PE PROTOCOL INDICATIONS: chest tightness with positive d-dimer TECHNIQUE: After the administration of intravenous contrast, 2 mm thick sections acquired from the pulmonary apices to the posterior costophrenic angles. 3-dimensional maximum intensity projection (MIP) coronal and sagittal reformats were then acquired through the thorax. For radiation dose reduction, the following was used: automated exposure control, adjustment of mA and/or kV according to patient size. COMPARISON: [facility], CT, CT CHEST WITHOUT CONTRAST, 03/10/2024, 13:19. FINDINGS: Image quality: Diagnostic. Pulmonary arteries: Pulmonary arteries are normal in size, and demonstrate no intraluminal filling defects to suggest central pulmonary embolism. Lower Neck: No enlarged lymph nodes. Thyroid: No thyroid nodules which require sonographic follow up, per consensus guidelines. Axillae: No enlarged lymph nodes. Chest Wall: Bilateral breast implants Bones: Unremarkable. Lungs and Pleura: No pneumothorax or pleural effusions. Unchanged right middle lobe nodule. Heart: Heart size is normal. No pericardial effusion. Thoracic Vessels: Ascending thoracic aorta measures 3.7 cm. Mediastinum and Steffanie: No enlarged lymph nodes. Esophagus: No wall thickening. No hiatal hernia. Upper Abdomen: Right renal cyst. IMPRESSION: No pulmonary embolus. No acute cardiopulmonary process. ECG Data Interpretation: Sinus Rhythm HR 81 AL 160 QRS [address]-t wave change No previous ekg to compare MDM Narrative Medical decision making narrative: Vital signs, nurse triage note, medication list, previous ER visits, and all imaging studies reviewed. EKG shows sinus rhythm no ST-T wave change. Two sets of troponin normal. Heart score 3 CTA showed no acute process. Differential diagnosis includes STEMI, NSTEMI, PE, unstable angina, GERD, anxiety, chest wall pain. Will have patient follow up PCP this week for re-evaluation. Discharge Plan Departure Patient Disposition: Home Clinical Impression: Chest pain Instructions: DI for Chest Pain Activity Restrictions/Additional Instructions: Return with new or worsening symptoms. Follow up with PCP in 1-2 days for re- evaluation. Prescriptions: No Action MULTIVITAMIN (Multivitamin -) 1 cap PO EVERY DAY Qty: 0 CA PANTOTHENATE/FOLIC ACID/VIT (MULTIVITAMIN) Qty: 0 Dehydroepiandrosterone, Micr (#DHEA) Qty: 0 Fish Oil (#OMEGA 3) Qty: 0 benzonatate [Tessalon Perles] 100 mg capsule 100 mg PO BID PRN (Reason: cough) Qty: 20 0RF Referrals: Yany Verduzco MD [Primary Care Provider, Internal Medicine] Stand Alone Forms: Patient Portal/API
[2024-12-01] VITALS: PULSE 66; RESP 13; O2SAT 96
[2024-12-01 00:30] VITALS: PULSE 66; RESP 16; O2SAT 96
[2024-12-01 01:00] VITALS: PULSE 65; RESP 29; O2SAT 96
[2024-12-01 01:30] VITALS: PULSE 64; RESP 16; O2SAT 97
[2024-12-01 01:34] LABS: Troponin I < 0.012 ng/mL (0.01-0.034)
[2024-12-01 02:00] VITALS: BP 162/86; PULSE 63; RESP 19; O2SAT 97
== END 2024-12-01 02:00 | disposition home or self-care (01) ==
PROVIDERS: Family Medicine; Emergency Provider Family Medicine; Family Provider Internal Medicine; PCP Internal Medicine
DX: R07.9 Chest pain, unspecified (principal); R06.02 Shortness of breath
CPT/HCPCS: 36415; 71275; 80053; 82550; 83735; 83880; 84484; 85025; 85379; 85610; 85730; 93005; 99283; 99284; Q9967

== ENCOUNTER → 2025-03-02 11:37 | Outpatient (CLI) | payer MEDICARE, OTHER, SELFPAY ==
--- NOTE | 2025-03-02 11:39 | EKG_ITS ---
[address] [address] Test Date: 2025-03-02 Pat Name: Radha Duke Department: [facility] Room: Gender: Female Medical Oncology Physician: ARMIN : 1945 Requested By: Order Number: [id number] Reading MD: Terrell Castellano MD Measurements Intervals [place] Rate: 60 P: 35 WV: 164 QRS: 111 QRSD: 88 T: 32 QT: 406 QTc: 406 Interpretive Statements Normal sinus rhythm Right axis deviation Electronically Signed On 03-02-2025 14:35:55 PDT by Terrell Castellano MD
[2025-03-02 12:09] LABS: Add Manual Diff / Slide Review NO; Hematocrit 41.9 % (36-46); Hemoglobin 14.0 g/dL (12.0-16.0); Lymphocytes Absolute Auto 1700 /uL (1100-4500); Mean Corpuscular HGB Conc 33.4 % (30-36); Mean Corpuscular Hemoglobin 28.2 PG (26-34); Mean Corpuscular Volume 84.2 fL (80-100); Platelet Count 192 X10^3/uL (150-400)
[2025-03-02 12:47] LABS: Albumin 4.3 g/dL (3.5-5.0); Blood Urea Nitrogen 22 mg/dL (7-17); Carbon Dioxide 27 mmol/L (22-32); Chloride 104 mmol/L (98-107); Estimated Glomerular Filt Rate 39 mL/min (>60); HEMOLYSIS < 15 (0-50); Potassium 4.7 mmol/L (3.4-5.1); Sodium 138 mmol/L (137-145)
[2025-03-02 12:54] LABS: Prealbumin 26.1 mg/dL (17.6-36.0)
[2025-03-02 12:56] LABS: Hemoglobin A1C% w Est Avg Glu 5.5 % (4.0-6.0)
[2025-03-02 13:02] LABS: Calcium 9.7 mg/dL (8.4-10.2); Glucose 89 mg/dL (70-99)
[2025-03-02 14:00] LABS: Vitamin D 25 Hydroxy (D3) 39.3 ng/mL (30.0-100.0)
== END ==
PROVIDERS: Family Provider Internal Medicine; PCP Internal Medicine; Referring Provider Orthopaedic Surgery Adult Reconstructive Orthopaedic Surgery; Visit Provider Orthopaedic Surgery Adult Reconstructive Orthopaedic Surgery
DX: Z01.818 Encounter for other preprocedural examination (principal); R73.09 Other abnormal glucose; E55.9 Vitamin D deficiency, unspecified; M25.561 Pain in right knee
CPT/HCPCS: 36415; 80048; 82040; 82306; 83036; 84134; 85025; 93005; 93010

== ENCOUNTER 2025-04-19 06:41 | Day surgery (SDC) | payer MEDICARE, OTHER, SELFPAY ==
[2025-03-29 14:16] VITALS: BMI 23.1
[2025-04-19] VITALS (12 sets, daily range): BP systolic 116–155; BP diastolic 59–87; PULSE 52–72; RESP 14–22; TEMP 36.5–36.9; O2SAT 94–100
--- NOTE | 2025-04-19 06:45 | DI.RAD.S_ITS ---
PROCEDURE: XR KNEE RT 1TO2V INDICATIONS: Post operative imaging TECHNIQUE: AP and lateral views of the knee were acquired. COMPARISON: None. FINDINGS: Bones: Normal alignment of the new medial compartment hemiarthroplasty. No periprosthetic fracture or loosening detected. Mild lateral and patellofemoral compartment joint space narrowing and osteophytes. Soft tissues: Prepatellar soft tissue swelling. Subcutaneous soft tissue emphysema noted. Moderate to large joint effusion. IMPRESSION: Expected postoperative appearance of a right medial compartment hemiarthroplasty. Dictated by: Aida Verma M.D. on 04/20/2025 at 6:20 Approved by: Adia Verma M.D. on 04/20/2025 at 6:21
[2025-04-19] MEDS: ACETAMINOPHEN 325 MG TABLET 975 MG PO (07:11)
--- NOTE | 2025-04-19 07:36 | PM.PREOP ---
Pre-operative Note Interval Note History & Physical reviewed/Exam performed by Physician: Yes Changes to H&P: No
[2025-04-19] MEDS: TRANEXAMIC ACID 1,000 MG in SODIUM CHLORIDE 0.9% 100 ML 200 MG INJ ×2 (09:18→11:05)
--- NOTE | 2025-04-19 10:25 | SUR.OPER ---
Supine on padded OR bed. Pillow under head, arms secured on padded armboards <90 degree abduction. Safety belt across torso. Non-operative leg secured with tape over blanket over lower leg. Operative leg secured in Marvin positioner. Foam padded brace at thigh of operative leg.
--- NOTE | 2025-04-19 10:59 | SUR.OPER ---
Incision irrigated with 250mL of Xperience surgical irrigation fluid.
[2025-04-19] MEDS: LACTATED RINGERS 1,000 ML 42 ML IV (11:12)
[2025-04-19] MEDS: KETOROLAC 30 MG/ML VIAL 15 MG INJ (11:15)
--- NOTE | 2025-04-19 11:30 | P.OP_ITS ---
Operative Date/Time/Diagnoses Date of procedure: 04/19/25 Time of procedure: 10:30 Pre-op diagnosis: Right knee osteoarthritis Post-op diagnosis: same Procedure & Clinicians Procedure: Medial unicompartmental right knee arthroplasty Same procedure(s) as scheduled: Yes Surgeon: Shree Navarrete Assisted?: Yes Legal Biller: Christal Malloy Anesthesia Type: Spinal, Sedation and Local Operative Notes Findings: Isolated medial compartment arthritis Closure Type: primary Applied: implant(s) Estimated Blood Loss (mL): 50 Tourniquet time (min): 78 Procedure in detail: Robotic assisted right medial unicompartmental knee arthroplasty using the [employer] Interactive journey 2 system Implants: Size 5 Femoral Component Size 6 Tibial Component Size 8 mm Polyethylene Procedure Summary: This 79-year-old female patient had isolated medial compartment arthritis. The entire medial compartment was eburnished of cartilage on both the femur and the tibia. There was no severe patellofemoral or lateral compartment arthritis visualized. The ACL was intact as was the MCL. Robotic assistance was utilized for the procedure. This involved 7? of slope which matched her [place] slope, 0? of varus on both the femur and the tibia. Alignment at the beginning of the surgery was 10? of varus and at the conclusion was 8? of varus Procedure in Detail: This patient was seen preoperatively and evaluated for knee pain which was refractory to numerous nonoperative treatment modalities. Their pain correlated with radiographic changes demonstrating significant degeneration in the knee joint. The risks and benefits of continued nonoperative management versus operative management were discussed at length and all of the patient?s questions were answered. Additional educational materials providing further details beyond our discussion in clinic were provided via a publicly available patient education video which included the incidence of medical complications associated with total knee arthroplasty, reasons for revision following total knee arthroplasty, and patient satisfaction rates following unicompartmental knee arthroplasty. With this understanding of the risks inherent to the procedure, the patient elected to move forward with operative management. Following preoperative optimization, the patient was scheduled for surgery. The patient was met in the preoperative holding area the day of the procedure and all questions were answered. The patient?s nares were swabbed with betadine in order to decolonize them from MRSA. Informed consent was signed and the left limb was marked with indelible ink. The patient was brought back to the operating room where anesthesia was induced. The patient was transferred to the operating table and all bony prominences were padded. The operative site was prepped and draped in the usual sterile fashion. A second prep stick was utilized following drape placement. The incision was marked corresponding to the medial aspect of the tibial tubercle and the patella. Ioban was wrapped circumferentially around the knee. Prior to incision, tranexamic acid and cefazolin were administered. Templating images were displayed. A timeout procedure was performed verifying the patient?s identity, medical comorbidities, allergies, relevant medications, anesthesia type and the surgical plan. All present were in agreement. The assistance of a physician food service assistant was required for positioning, room setup, soft tissue retraction and wound closure. Without this assistance, the procedure would have been significantly more challenging and time consuming. ? The tourniquet was inflated prior to incision. I made an anterior incision over the knee, dissected through the subcutaneous tissues and identified the lateral border of the VMO. Medial and lateral soft tissue flaps were developed. A mid vastus arthrotomy was performed. ?I released tissue off of the proximal medial tibia. ?I inserted pins for the robotic rays into the femur and tibia. ?I mapped out the distal femur and proximal tibia using the robotic array and mapped out the hip knee ankle axis as well. ?I noted grossly that she had some recoil with knee hyperextension. ?The varus deformity was approximately 10 ? on the robotic array. ?I made a plan which would involve burring of the tibia and femur using the robotic system which would lead to appropriate knee balance once implants were placed. ?After reviewing all parameters on this plan I felt that it was appropriate and proceeded with burring. ?I initially burred the distal femur and the posterior femur followed by the proximal tibia. ?As bone was cleared out posteriorly on both the femoral and tibial side I switched back and forth until the cuts were completed. I used a single-sided reciprocating saw on the intercondylar eminence to create a flush surface to maximize medial-lateral width of the tibial component. I inserted trials. ?I found these had appropriate parameters both with my gross assessment and with the robotic assessment. ?I th erefore implanted those components. ? All bony ends were copiously irrigated and dried. ?Cement was introduced. ?The tibial component was inserted and excess cement was removed ensuring no cement had leaked out the back of the knee. ?Cement was then placed on the femur and the femoral component was inserted while maintaining pressure on the anterior tibial base plate to prevent lift-off. ?A polyethylene insert trial was then placed. ?The knee was placed into full extension and allowed to dry. ?Once cement had dried excess cement was removed, the tourniquet was taken down, and I again trialed with the 2 mm and 3 mm spacer. ?I found that the 8 mm trial polyethylene had the correct gross kinematics on my assessment that I desired and I therefore placed the final polyethylene insert. ?The tissues were briefly soaked in peroxide and Betadine as a dilute mixture and then the knee was copiously irrigated. ?TXA was administered. The arthrotomy was closed with nonabsorbable interrupted suture as well as an absorbale running Vycril suture extending up into the VMO split ensuring that this extended to the top of the arthrotomy. This was backed up with running barbed suture throughout the arthrotomy. A barbed suture was used in the subcutaneous tissues. The skin was closed with 2-0 and 3-0 sutures. Surgical glue was applied and a soft dressing was placed. The sponge, instrument and nee dle counts were reported as being correct at the end of the case. ?No obvious complications occurred. The patient was transferred from the operating table back to a stretcher. The patient emerged from anesthesia without difficulty and was taken to the PACU in a stable condition. Plan for aftercare: - Weightbearing as tolerated - Mobilization as soon as the patient has recovered from anesthesia - Aspirin 81 twice per day for DVT prophylaxis - Multimodal pain regimen with no IV opioids ordered - Anticipate discharge home later today - Follow up at [facility] in 2 weeks - Detailed postoperative instructions available at [email or web address] Complications: none Post-operative Condition: stable Disposition: same day surgery
[2025-04-19] MEDS: ONDANSETRON 4 MG/2 ML INJ IV (14:08)
--- NOTE | 2025-04-19 14:45 | PT.IIE ---
Current Diagnoses Unilateral primary osteoarthritis, right knee (04/19/25) Surgery Performed Operation Date: 04/19/25 09:30 Actual Procedures p Unicompartment Knee Arthroplasty - Robot(Right) - Shree Navarrete MD Surgical History (Last Updated 03/29/25 @ 14:41 by Charo Gonzalez, RN) History of repair of ACL (1981) History of total right knee replacement (06/01/19) Hx of breast surgery (11/23/24) Medical History (Last Updated 03/29/25 @ 14:41 by Charo Gonzalez RN) History of bronchitis Osteopenia Primary osteoarthritis of right knee Physical Therapy Inpatient Evaluation/Re-Eval M1 PT IP Prior Functional Status Start: 04/19/25 15:02 Freq: NEEDED Status: Active Protocol: Document 04/19/25 14:19 DCW (Rec: 04/19/25 15:16 DCW [id number]) Medical Review Prior Functional Status Medical History Yes Reviewed Social History Living Arrangements House Number of Stairs To 0 ARANZA, pt able to live on first floor Enter/Railing? Home Equipment Front Wheel Walker,Shower Seat with Backrest Additional Social Sister (retired nurse) staying with patient for 9 days History Comment post-op M2 PT-IP Current Condition Start: 04/19/25 15:02 Freq: NEEDED Status: Active Protocol: Document 04/19/25 14:19 DCW (Rec: 04/19/25 15:16 DCW [id number]) Physical Therapy Current Condition Current Condition Evaluation Date 04/19/25 Treatment Diagnosis R Partial Knee Arthroplasty - medial Onset Date 04/19/25 M3 PT-IP Subjective Start: 04/19/25 15:02 Freq: NEEDED Status: Active Protocol: Document 04/19/25 14:19 DCW (Rec: 04/19/25 15:16 DCW [id number]) Subjective Physical Therapy Visit Type Type Initial Evaluation Visit Start Time 14:19 Visit Stop Time 14:45 Notes Pt seated EOB on PACU bed, complaining of nausea. Nursing helped get patient partially dressed, but has not been able to stand to get pants pulled up secondary to nausea. Pt agreeable to PT at this time. Number of CARGO CHECKER Visits 0 Physical Therapy Visit Comments Patient Comments I'm not taking any more of these pain meds, they just make me nauseated. Patient Goals Return home M4 PT-IP Mobility and Gait Start: 04/19/25 15:02 Freq: NEEDED Status: Active Protocol: Document 04/19/25 14:19 DCW (Rec: 04/19/25 15:16 DCW [id number]) PT-Transfer Assessment Sit to and From Stand Sit to and from Standby Assistance Stand Equipment Transfer Assistive Bed Rail,Gait Belt,Front Wheeled Walker Device Orthotic/Prosthetic No Devices or Brace: Comments Mobility Comments Pt able to stand EOB, initially used FWW for support, but then able to let go with both hands to pull up her pants, maintained balance well without support. Gait Assessment Gait Gait Assistance Standby Assistance Required: Distance (Feet) 60 Able to Maintain Yes Weight Bearing Status During Gait Assistive Devices Assistive Device Gait Belt,Front Wheeled Walker Orthotic/Prosthetic No Devices or Brace: Gait Deviations General Gait Pattern Antalgic,Decreased Stride Length,Decreased Feet Clearance Factors Limiting Gait Function Factors Limiting Decreased Activity Tolerance,Decreased Strength,Pain Gait Function Comments Gait Comments Pt ambulated 60' around PACU SBA /c FWW. Pt continued to mainly complain of nausea, noted some mild right knee discomfort. Exhibits decreased foot clearance and stride length. M5 PT-IP Objective Assessments Start: 04/19/25 15:02 Freq: NEEDED Status: Active Protocol: Document 04/19/25 14:19 DCW (Rec: 04/19/25 15:16 [facility] [id number]) Orientation Orientation/Cognition Level of Alertness Alert Orientation Name,Birthday,Month,Date,Year,Place,Situation Language Function No Deficits Noted Ability Safety Awareness Understands Safety Issues Memory Description No Deficits Noted Strength Comments Strength Comments Pt able to perform full LAQ seated EOB, demonstrates good quad control M6 PT-IP Treatment Start: 04/19/25 15:02 Freq: NEEDED Status: Active Protocol: Document 04/19/25 14:19 DCW (Rec: 04/19/25 15:16 DCW [id number]) Physical Therapy Treatment Exercises Exercises Ankle Pumps,Gluteal Sets,Quad Sets,Heel Slides,Passive Knee Extension Hang Other Treatments Other Treatment Reviewed post-op HEP, handout provided Performed M7 PT-IP Assessment and Plan Start: 04/19/25 15:02 Freq: NEEDED Status: Active Protocol: Document 04/19/25 14:19 DCW (Rec: 04/19/25 15:16 DCW [id number]) PT Summary Assessment and Plan Potential Rehabilitation Good Potential Status of Condition Stable at Evaluation Summary Impairments Pain,ROM,Strength,Balance,Gait,Activity Tolerance Assessment Summary Pt doing very well day of surgery, showing good quad control, able to stand unsupported with normal weight bearing on surgical leg, no LOB. Pt ambulated around PACU /c FWW, short step length and decreased foot clearance, but no safety concerns. Patient and sister noted understanding of post-op exercises. Pt has out- patient scheduled next week. Pt able to verbalize post- op exercises, reports she has had a L TKA previously, feels this will be a much easier recovery. Pt likely safe to return home when medically cleared. Frequency of Treatment Frequency Of Discharge Treatment Weight Bearing Status Weight Bearing Weight Bear as Tolerated Status Recommendations To Nursing Amount of Assist Standby Assistance Needed Discharge Recommendations PT Discharge Home,Home with Assistance Recommendations Transportation Needs Private Vehicle at Discharge
== END 2025-04-19 15:51 | disposition home or self-care (01) ==
PROVIDERS: PCP Internal Medicine; Referring Provider Internal Medicine; Visit Provider Orthopaedic Surgery Adult Reconstructive Orthopaedic Surgery
PROC: (CPT 27446; principal; 2025-04-19 09:30)
DX: M17.11 Unilateral primary osteoarthritis, right knee (principal); E78.5 Hyperlipidemia, unspecified; F41.9 Anxiety disorder, unspecified; I71.9 Aortic aneurysm of unspecified site, without rupture
CPT/HCPCS: 27446; 73560; 97161; 97535; C1776; A9270; C1713; J0689; J1100; J1171; J1885; J2405; J2704; J3010; J7050; J7120